=== PATIENT | male | born 1945 | race Two or more races ===

== ENCOUNTER 2017-10-05 15:01 | Inpatient (IN) | payer MEDICARE, OTHER ==
[~2017-10-05] VITALS: Ht 170.2 cm; Wt 93.2 kg
[2017-10-05] VITALS (23 sets, daily range): BP systolic 124–156; BP diastolic 59–87
[~2017-10-05 15:01] MED LIST: AMLO5TAB2 PO; ASPI81CH4 PO; FINA5TAB4 PO; HYDR-2551 PO; LOSA100T27 PO
[2017-10-05] MEDS ORDERED: SODIUM CHLORIDE 0.9% 1,000 ML IV ONE (15:44)
[2017-10-05 15:49] LABS: Hematocrit 32.3 % (41.0-53.0); Hemoglobin 10.9 g/dL (13.5-17.5); Mean Corpuscular Hemoglobin 29.5 pg (28.0-32.0); Mean Corpuscular Hgb Conc. 33.6 g/dL (32.0-36.0); Mean Corpuscular Volume 87.6 fL (80.0-100.0); Platelet Count (auto) 62 10^3/uL (140-450); Red Blood Cells 3.69 10^6/uL (4.5-5.90); Red Cell Distribution Width 13.5 % (11.8-14.3)
[2017-10-05 16:00] LABS: White Blood Cell 1.3 10^3/uL (4.4-10.8)
[2017-10-05 16:01] LABS: Basophils % (manual) 0 (0.0-2.0); Blast Cells 0; Eosinophils % (manual) 0 (0-7); Metamyelocytes % 0; Myelocytes % 0; Promyelocytes % 0; Reactive Lymphocytes 0
[2017-10-05 16:07] LABS: Alanine Aminotransferase 63 U/L (16-61); Albumin 2.7 g/dL (3.4-5.0); Alkaline Phosphatase 34 U/L (45-117); Anion Gap 10 (5-15); Aspartate Aminotransferase 33 U/L (15-37); BUN/Creatinine Ratio 10.7; Bilirubin, Total 0.7 mg/dL (0.2-1.0); Blood Urea Nitrogen 16 mg/dL (7-18); Calcium 8.1 mg/dL (8.5-10.1); Carbon Dioxide 28 mmol/L (21-32); Chloride 92 mmol/L (98-107); GFR African American 59 mL/min; GFR Non-African American 49 mL/min; Glucose 363 mg/dL (74-106); Lactic Acid w/Reflex 2.6 mmol/L (0.4-2.0); Sodium 130 mmol/L (136-145); Total Protein 6.8 g/dL (6.4-8.2)
[2017-10-05] MEDS ORDERED: metroNIDAZOLE 500MG/100ML 100 ML IV ONE (16:30)
[2017-10-05] MEDS ORDERED: PIPERACILLIN-TAZOB 3.375GM 100 ML IV ONE (16:30)
[2017-10-05] MEDS ORDERED: InsuLIN REG 1unit/0.01ml Soln (100units/ml) IV ONE (16:30)
[2017-10-05 16:32] LABS: INR 1.07 (0.9-1.15); Partial Thromboplastin Time 32.5 sec (22.64-33.71); Prothrombin Time 11.7 sec (9.37-12.3)
[2017-10-05] MEDS ORDERED: POTASSIUM CHL 10% (20 MEQ/15ML) 15ml ORAL SOLN PO ONE (16:45)
[2017-10-05 16:57] LABS: Band Neutrophils % (manual) 0; Lymphocytes % (manual) 79 (10.0-50.0); Monocytes % (manual) 6 (0-12)
[2017-10-05] MEDS ORDERED: FILGRASTIM 300 MCG INJ VIAL SC ONE (17:00)
[2017-10-05] MEDS ORDERED: MORPHINE SULFATE 10 MG/ML INJ 1ML SDV IV PRN (17:00)
[2017-10-05] MEDS ORDERED: VANCOMYCIN PER PHARMACY 0 MG IV SCH (17:00)
[2017-10-05] MEDS ORDERED: ACYCLOVIR 5MG/KG Q8HR PER RX 0 ML IV SCH (17:00)
[2017-10-05] MEDS ORDERED: LORazepam 0.5 MG TAB PO PRN (17:00)
[2017-10-05] MEDS ORDERED: VANCOMYCIN 1GM/250ML 250 ML IV ONE (17:00)
[2017-10-05] MEDS ORDERED: ALBUTEROL SULF 2.5 MG/0.5ML(0.5%) NEB SOLN NEB PRN (17:00)
[2017-10-05] MEDS ORDERED: ACETAMINOPHEN 500 MG TAB PO PRN (17:00)
[2017-10-05] MEDS ORDERED: HYDROcodone-ACET 5/325MG TAB PO PRN (17:00)
[2017-10-05] MEDS ORDERED: DEXTROSE (50%) 50ML SYRG IV PRN (17:00)
[2017-10-05] MEDS ORDERED: NITROGLYCERIN 0.4 MG SL TAB SL PRN (17:00)
[2017-10-05] MEDS ORDERED: AZITHROMYCIN 500MG/ 250ML 250 ML IV ONE (17:00)
[2017-10-05] MEDS ORDERED: PROMETHAZINE HCL 25 MG/ML 1ML IV PRN (17:00)
[2017-10-05] MEDS ORDERED: LACTULOSE 20Gm/30ML SOLN PO PRN (17:00)
[2017-10-05] MEDS: ALBUTEROL SULF 2.5 MG/0.5ML(0.5%) NEB SOLN NEB SCH (18:35)
[2017-10-05] MEDS: IPRATROPIUM BROM 0.5 MG/2.5ML INH SOL NEB SCH (18:35)
[2017-10-05] MEDS ORDERED: THROAT LOZENGES(CEPASTAT) MT PRN (18:45)
[2017-10-05] MEDS: VANCOMYCIN 1,250 MG in D5W 5% 250 ML IV SCH (20:00)
[2017-10-05] MEDS: PANTOPRAZOLE 40 MG TAB PO SCH (20:43)
[2017-10-05] MEDS: FLUCONAZOLE 200MG/100ML 100 ML IV SCH (20:43)
[2017-10-05] MEDS: SODIUM CHLORIDE 0.9% 1,000 ML IV SCH (20:43)
[2017-10-05] MEDS: InsuLIN REG 1unit/0.01ml Soln (100units/ml) SC SCH (21:00)
[2017-10-05] MEDS: ACCU-CHEK COMFORT CURVE STRIP VI SCH (21:00)
[2017-10-06] VITALS (63 sets, daily range): BP systolic 119–156; BP diastolic 61–88
[2017-10-06] MEDS: ACCU-CHEK COMFORT CURVE STRIP VI SCH ×6 (00:28→20:04)
[2017-10-06] MEDS: InsuLIN REG 1unit/0.01ml Soln (100units/ml) SC SCH ×6 (00:29→20:04)
[2017-10-06] MEDS: IPRATROPIUM BROM 0.5 MG/2.5ML INH SOL NEB SCH ×4 (00:37→19:14)
[2017-10-06] MEDS: ALBUTEROL SULF 2.5 MG/0.5ML(0.5%) NEB SOLN NEB SCH ×4 (00:37→19:14)
[2017-10-06] MEDS: SODIUM CHLORIDE 0.9% 1,000 ML IV SCH ×3 (00:52→16:52)
[2017-10-06] MEDS: ACYCLOVIR SOD 50MG/ML 500 MG in D5W 5% 100 ML IV SCH ×4 (01:00→18:00)
[2017-10-06] MEDS: FLUCONAZOLE 200MG/100ML 100 ML IV SCH ×3 (02:41→11:17)
[2017-10-06] MEDS: PIPERACILLIN-TAZOB 3.375GM 100 ML IV SCH ×2 (02:44→06:00)
[2017-10-06] MEDS: MORPHINE SULFATE 10 MG/ML INJ 1ML SDV IV PRN ×2 (05:42→22:18)
[2017-10-06 05:53] LABS: Hematocrit 30.3 % (41.0-53.0); Hemoglobin 10.4 g/dL (13.5-17.5); Mean Corpuscular Hemoglobin 29.9 pg (28.0-32.0); Mean Corpuscular Hgb Conc. 34.1 g/dL (32.0-36.0); Mean Corpuscular Volume 87.6 fL (80.0-100.0); Platelet Count (auto) 53 10^3/uL (140-450); Red Blood Cells 3.46 10^6/uL (4.5-5.90); Red Cell Distribution Width 13.9 % (11.8-14.3)
[2017-10-06 06:06] LABS: White Blood Cell 1.4 10^3/uL (4.4-10.8)
[2017-10-06 06:07] LABS: Basophils % (manual) 0 (0.0-2.0); Blast Cells 0; Eosinophils % (manual) 0 (0-7); Promyelocytes % 0; Reactive Lymphocytes 0
[2017-10-06 06:26] LABS: Albumin 2.5 g/dL (3.4-5.0); BUN/Creatinine Ratio 9.6; Bilirubin, Total 0.6 mg/dL (0.2-1.0); Calcium 8.1 mg/dL (8.5-10.1); Total Protein 6.3 g/dL (6.4-8.2)
[2017-10-06 06:27] LABS: Potassium 2.8 mmol/L (3.5-5.1)
[2017-10-06 06:40] LABS: Band Neutrophils % (manual) 5; Lymphocytes % (manual) 77 (10.0-50.0); Metamyelocytes % 3; Monocytes % (manual) 6 (0-12); Myelocytes % 2
[2017-10-06] MEDS ORDERED: POTASSIUM CHL 10% (20 MEQ/15ML) 15ml ORAL SOLN PO ONE ×2 (07:00→15:15)
[2017-10-06] MEDS: AZITHROMYCIN 500MG/ 250ML 250 ML IV SCH (10:06)
[2017-10-06] MEDS: PANTOPRAZOLE 40 MG TAB PO SCH (10:06)
[2017-10-06] MEDS: PIPERACILLIN-TAZOB 3.375GM 50 ML IV SCH ×2 (13:50→19:15)
[2017-10-06] MEDS: VANCOMYCIN 1,250 MG in D5W 5% 250 ML IV SCH (14:16)
[2017-10-06] MEDS ORDERED: POTASSIUM CHL 20MEQ/50ML 50 ML IV ONE (15:15)
[2017-10-06] MEDS ORDERED: FILGRASTIM 480 MCG INJ VIAL SC ONE (16:00)
[2017-10-06] MEDS: guaiFENesin-DEXTROMETHORPHAN 5ML SYR PO PRN (18:38)
[2017-10-07] VITALS (7 sets, daily range): BP systolic 127–150; BP diastolic 69–85
[2017-10-07] MEDS: IPRATROPIUM BROM 0.5 MG/2.5ML INH SOL NEB SCH ×4 (00:12→19:27)
[2017-10-07] MEDS: ALBUTEROL SULF 2.5 MG/0.5ML(0.5%) NEB SOLN NEB SCH ×4 (00:12→19:27)
[2017-10-07] MEDS: ACCU-CHEK COMFORT CURVE STRIP VI SCH ×6 (00:30→21:27)
[2017-10-07] MEDS: InsuLIN REG 1unit/0.01ml Soln (100units/ml) SC SCH ×6 (00:58→21:28)
[2017-10-07] MEDS: TEMAZEPAM 15 MG CAP PO PRN (00:59)
[2017-10-07] MEDS: PIPERACILLIN-TAZOB 3.375GM 50 ML IV SCH ×4 (01:15→18:15)
[2017-10-07] MEDS: ACYCLOVIR SOD 50MG/ML 500 MG in D5W 5% 100 ML IV SCH ×2 (02:00→11:05)
[2017-10-07] MEDS: SODIUM CHLORIDE 0.9% 1,000 ML IV SCH ×2 (05:22→18:14)
[2017-10-07 06:07] LABS: Hematocrit 28.1 % (41.0-53.0); Hemoglobin 9.5 g/dL (13.5-17.5); Mean Corpuscular Hemoglobin 29.6 pg (28.0-32.0); Mean Corpuscular Hgb Conc. 33.9 g/dL (32.0-36.0); Mean Corpuscular Volume 87.4 fL (80.0-100.0); Platelet Count (auto) 69 10^3/uL (140-450); Red Blood Cells 3.22 10^6/uL (4.5-5.90); Red Cell Distribution Width 13.7 % (11.8-14.3); White Blood Cell 2.8 10^3/uL (4.4-10.8)
[2017-10-07 06:19] LABS: BUN/Creatinine Ratio 7.9; Calcium 7.8 mg/dL (8.5-10.1); Potassium 3.1 mmol/L (3.5-5.1)
[2017-10-07 06:26] LABS: Basophils % (manual) 0 (0.0-2.0); Blast Cells 0; Eosinophils % (manual) 0 (0-7); Promyelocytes % 0; Reactive Lymphocytes 0
[2017-10-07] MEDS: VANCOMYCIN 1,250 MG in D5W 5% 250 ML IV SCH (08:30)
[2017-10-07] MEDS: guaiFENesin-DEXTROMETHORPHAN 5ML SYR PO PRN ×3 (09:15→22:12)
[2017-10-07 10:44] LABS: Band Neutrophils % (manual) 6; Lymphocytes % (manual) 63 (10.0-50.0); Metamyelocytes % 1; Monocytes % (manual) 7 (0-12); Myelocytes % 1
[2017-10-07] MEDS: FILGRASTIM 480 MCG INJ VIAL SC SCH (11:05)
[2017-10-07] MEDS: PANTOPRAZOLE 40 MG TAB PO SCH (11:05)
[2017-10-07] MEDS: AZITHROMYCIN 500MG/ 250ML 250 ML IV SCH (11:05)
[2017-10-07] MEDS: FLUCONAZOLE 200MG/100ML 100 ML IV SCH ×2 (12:25→12:34)
[2017-10-07] MEDS ORDERED: POTASSIUM CHL 20 Meq TABLET PO ONE (13:45)
[2017-10-08] VITALS (7 sets, daily range): BP systolic 137–164; BP diastolic 77–83
[2017-10-08] MEDS: ALBUTEROL SULF 2.5 MG/0.5ML(0.5%) NEB SOLN NEB SCH ×4 (00:35→18:59)
[2017-10-08] MEDS: IPRATROPIUM BROM 0.5 MG/2.5ML INH SOL NEB SCH ×4 (00:35→18:59)
[2017-10-08] MEDS: ACCU-CHEK COMFORT CURVE STRIP VI SCH ×6 (00:40→20:00)
[2017-10-08] MEDS: InsuLIN REG 1unit/0.01ml Soln (100units/ml) SC SCH ×6 (00:41→20:00)
[2017-10-08] MEDS: PIPERACILLIN-TAZOB 3.375GM 50 ML IV SCH ×4 (00:41→18:28)
[2017-10-08] MEDS: TEMAZEPAM 15 MG CAP PO PRN (00:42)
[2017-10-08] MEDS: VANCOMYCIN 1,250 MG in D5W 5% 250 ML IV SCH (01:59)
[2017-10-08] MEDS: SODIUM CHLORIDE 0.9% 1,000 ML IV SCH (04:58)
[2017-10-08 05:09] LABS: Hemoglobin 9.5 g/dL (13.5-17.5); Mean Corpuscular Hemoglobin 29.9 pg (28.0-32.0); Mean Corpuscular Hgb Conc. 34.1 g/dL (32.0-36.0); Mean Corpuscular Volume 87.6 fL (80.0-100.0); Platelet Count (auto) 141 10^3/uL (140-450); Red Blood Cells 3.19 10^6/uL (4.5-5.90); Red Cell Distribution Width 13.8 % (11.8-14.3); White Blood Cell 6.5 10^3/uL (4.4-10.8)
[2017-10-08 05:16] LABS: Basophils % (manual) 0 (0.0-2.0); Blast Cells 0; Eosinophils % (manual) 0 (0-7); Metamyelocytes % 0; Promyelocytes % 0; Reactive Lymphocytes 0
[2017-10-08 05:21] LABS: Magnesium 2.2 mg/dL (1.6-2.6)
[2017-10-08 05:28] LABS: Potassium 2.7 mmol/L (3.5-5.1)
[2017-10-08 05:40] LABS: Band Neutrophils % (manual) 17; Lymphocytes % (manual) 37 (10.0-50.0); Monocytes % (manual) 8 (0-12); Myelocytes % 1
[2017-10-08] MEDS ORDERED: POTASSIUM CHL 20 Meq TABLET PO ONE ×3 (06:00→14:30)
[2017-10-08] MEDS: AZITHROMYCIN 500MG/ 250ML 250 ML IV SCH (10:12)
[2017-10-08] MEDS: PANTOPRAZOLE 40 MG TAB PO SCH (10:12)
[2017-10-08] MEDS: FILGRASTIM 480 MCG INJ VIAL SC SCH (10:13)
[2017-10-08] MEDS: FLUCONAZOLE 200MG/100ML 100 ML IV SCH ×2 (10:13→11:00)
[2017-10-08] MEDS ORDERED: LEVO500T21 PO (12:05)
[2017-10-08] MEDS ORDERED: SACC250C PO (12:05)
[2017-10-08] MEDS ORDERED: ALBUAER3 IN (12:06)
[2017-10-08 12:45] LABS: Urine Bacteria NONE SEEN /hpf (None Seen); Urine Blood Negative /uL (Negative); Urine WBC <1 /hpf (0 - 3)
[2017-10-08] MEDS: VANCOMYCIN 1GM/250ML 250 ML IV SCH (14:26)
[2017-10-08] MEDS ORDERED: LOSARTAN POTASSIUM 50 MG TAB PO ONE (16:30)
[2017-10-09] MEDS: ALBUTEROL SULF 2.5 MG/0.5ML(0.5%) NEB SOLN NEB SCH ×4 (00:30→19:12)
[2017-10-09] MEDS: IPRATROPIUM BROM 0.5 MG/2.5ML INH SOL NEB SCH ×4 (00:30→19:12)
[2017-10-09] MEDS: InsuLIN REG 1unit/0.01ml Soln (100units/ml) SC SCH ×6 (00:55→20:07)
[2017-10-09] MEDS: ACCU-CHEK COMFORT CURVE STRIP VI SCH ×6 (00:55→20:07)
[2017-10-09] MEDS: VANCOMYCIN 1GM/250ML 250 ML IV SCH (02:00)
[2017-10-09] MEDS: PIPERACILLIN-TAZOB 3.375GM 50 ML IV SCH ×2 (02:32→06:56)
[2017-10-09 03:30] VITALS: BP 137/70
[2017-10-09 05:09] LABS: Albumin 2.2 g/dL (3.4-5.0); BUN/Creatinine Ratio 5.3; Calcium 7.4 mg/dL (8.5-10.1)
[2017-10-09 05:12] LABS: Bilirubin, Total 0.3 mg/dL (0.2-1.0); Total Protein 5.9 g/dL (6.4-8.2)
[2017-10-09 05:15] LABS: Potassium 2.9 mmol/L (3.5-5.1)
[2017-10-09] MEDS ORDERED: POTASSIUM CHL 20 Meq TABLET PO ONE ×3 (07:45→18:15)
[2017-10-09] MEDS: FILGRASTIM 480 MCG INJ VIAL SC SCH (09:52)
[2017-10-09] MEDS: AZITHROMYCIN 500MG/ 250ML 250 ML IV SCH (09:52)
[2017-10-09] MEDS: FLUCONAZOLE 200MG/100ML 100 ML IV SCH (09:52)
[2017-10-09] MEDS: LOSARTAN POTASSIUM 50 MG TAB PO SCH (09:53)
[2017-10-09] MEDS: PANTOPRAZOLE 40 MG TAB PO SCH (09:53)
[2017-10-09] MEDS ORDERED: POTA20TA53 PO (11:29)
[2017-10-09 12:00] VITALS: BP 140/76
[2017-10-09 16:00] VITALS: BP 133/84
[2017-10-09 19:45] VITALS: BP 141/45
[2017-10-09 23:30] VITALS: BP 144/80
[2017-10-10] MEDS: ALBUTEROL SULF 2.5 MG/0.5ML(0.5%) NEB SOLN NEB SCH ×3 (00:04→11:22)
[2017-10-10] MEDS: IPRATROPIUM BROM 0.5 MG/2.5ML INH SOL NEB SCH ×3 (00:04→11:22)
[2017-10-10] MEDS: InsuLIN REG 1unit/0.01ml Soln (100units/ml) SC SCH ×5 (00:21→16:13)
[2017-10-10] MEDS: ACCU-CHEK COMFORT CURVE STRIP VI SCH ×5 (00:21→16:09)
[2017-10-10 04:00] VITALS: BP 143/68
[2017-10-10 06:51] LABS: Basophils # (auto) 0.1 uL; Basophils % (auto) 0.3 % (0.0-2.0); Eosinophils # (auto) 0 uL; Hematocrit 29.5 % (41.0-53.0); Lymphocytes # (auto) 2.8 uL; Lymphocytes % (auto) 11.6 % (10.0-50.0); Mean Corpuscular Hemoglobin 29.9 pg (28.0-32.0); Mean Corpuscular Hgb Conc. 33.8 g/dL (32.0-36.0); Mean Corpuscular Volume 88.3 fL (80.0-100.0); Monocytes # (auto) 1.5 uL; Neutrophils % (auto) 82.1 % (37.0-80.0); Platelet Count (auto) 152 10^3/uL (140-450); Red Blood Cells 3.34 10^6/uL (4.5-5.90); Red Cell Distribution Width 13.8 % (11.8-14.3); White Blood Cell 24.4 10^3/uL (4.4-10.8)
[2017-10-10 07:30] VITALS: BP 145/82
[2017-10-10] MEDS: PANTOPRAZOLE 40 MG TAB PO SCH (09:35)
[2017-10-10] MEDS: LOSARTAN POTASSIUM 50 MG TAB PO SCH (09:39)
[2017-10-10 12:00] VITALS: BP 151/75
[2017-10-10] MEDS ORDERED: POTASSIUM CHL 20 Meq TABLET PO ONE (13:00)
[2017-10-10] MEDS ORDERED: LEVOFLOXACIN 250 MG TAB PO ONE (13:15)
[2017-10-10] MEDS ORDERED: FLORASTOR (S. BOULARDII) 250 MG CAP PO SCH (13:15)
[2017-10-10] MEDS ORDERED: METR500T PO (13:23)
[2017-10-10 15:52] VITALS: BP 151/75
[2017-10-10 16:37] VITALS: BP 151/75
== END 2017-10-10 17:30 | disposition home or self-care (01) | DRG 871 ==
LOC: ER 15:01 → TELE 15:02 → ICU WEST 17:47 → DOU IN ICU 10-07 11:23
PROVIDERS: ADMIT Internal Medicine; ATTEND Internal Medicine
PROC: 02HV33Z Insertion of Infusion Device into Superior Vena Cava, Percutaneous Approach (ICD-10-PCS; principal; 2016-12-06)
DX: A41.9 Sepsis, unspecified organism (principal); J18.1 Lobar pneumonia, unspecified organism; J96.01 Acute respiratory failure with hypoxia; D61.810 Antineoplastic chemotherapy induced pancytopenia; E44.0 Moderate protein-calorie malnutrition; E11.9 Type 2 diabetes mellitus without complications; E87.1 Hypo-osmolality and hyponatremia; J44.0 Chronic obstructive pulmonary disease with (acute) lower respiratory infection; E87.6 Hypokalemia; Z85.3 Personal history of malignant neoplasm of breast; E78.5 Hyperlipidemia, unspecified; I10 Essential (primary) hypertension; R50.81 Fever presenting with conditions classified elsewhere; T45.1X5A Adverse effect of antineoplastic and immunosuppressive drugs, initial encounter; Z90.12 Acquired absence of left breast and nipple
CPT/HCPCS: 36415; 36600; 71010; 71250; 80048; 80053; 80202; 81001; 82270; 82805; 82962; 83036; 83605; 83735; 84132; 84484; 85007; 85025; 85027; 85379; 85610; 85730; 87040; 87081; 87400; 87493; 93005; 93970; 94640; 94761; 96361; 96365; 96375; J1442; J1450; J1815; J2543; J3490; J7060

== ENCOUNTER 2024-08-05 20:04 | Emergency (ER) | payer MEDICARE, OTHER ==
[~2024-08-05] VITALS: Ht 170.2 cm; Wt 89.1 kg
[~2024-08-05 20:04] MED LIST changes: +ALBUAER3 IN; +AMLO1TAB22 PO; -AMLO5TAB2 PO; -ASPI81CH4 PO; +ASPI81CH74 PO; +LEVO500T31 PO; +LOSA-535 PO; -LOSA100T27 PO; +METR500T PO; +POTA-220 PO; +SACC250C PO
[2024-08-05 21:26] VITALS: PULSE 87; RESP 16; TEMP 99; O2SAT 96
[2024-08-05 22:00] VITALS: BP 164/84
[2024-08-05] MEDS ORDERED: MOXI0.5S3 OP (22:03)
[2024-08-05] MEDS ORDERED: AMLO1TAB23 PO (22:08)
== END 2024-08-05 22:20 | disposition home or self-care (01) ==
LOC: ER 20:04
DX: I10 Essential (primary) hypertension (principal); H10.32 Unspecified acute conjunctivitis, left eye; E78.5 Hyperlipidemia, unspecified; Z79.899 Other long term (current) drug therapy

== ENCOUNTER 2025-08-19 11:01 | Inpatient (IN) | payer MEDICARE, OTHER ==
[~2025-08-19] VITALS: Ht 170.2 cm; Wt 88.5 kg
[~2025-08-19 11:01] MED LIST changes: +AMLO1TAB23 PO; +MOXI0.5S3 OP
--- NOTE | 2025-08-19 11:50 | ED.PDOC ---
History of Present Illness HPI Comments This is a 79 year old male presenting to the ED with chief complaint of generalized weakness. Patient reports that he has been experiencing generalized weakness with associated imbalance when walking for the past 5 months, worsening over time. Patient relays that he had fell 2 times yesterday, hitting his head both times. Patient denies any LOC, syncope, headache, dizziness, N/V, abdominal pain, chest pain, or SOB. Chief Complaint: General Weakness Time Seen by MD: 11:48 Primary Care Provider: ALEX Reviewed Notes: Nurses Notes, Medications, Allergies Allergies: Coded Allergies: NO KNOWN ALLERGIES (Unverified , 07/10/17) Home Meds Active Scripts Amlodipine Besylate (Amlodipine Besylate) 10 Mg Tab, 10 MG PO DAILY for 30 Days, #30 TAB Take 1 tab by mouth once daily. STOP YOUR AMLODIPINE 5 MG TABS. Prov:PAT MO [facility] 08/05/24 Moxifloxacin Hydrochloride (Moxifloxacin HCl) 0.5 % Hanna, 0.5 % OP ONCE for 7 Da ys, #2 ML Instill 1 drop 3 times a day until left eye x7 days Prov:PAT MO [facility] 08/05/24 Metronidazole (Flagyl) 500 Mg Tab, 500 MG PO Q6HR for 10 Days, #40 TAB Prov:SALBADOR ALLISON MD 10/10/17 Potassium Chloride (Klor-Con M20) 20 Meq Tab, 20 MEQ PO DAILY, #30 TAB Prov:SALBADOR ALLISON MD 10/09/17 Albuterol Sulfate (VENTOLIN MDI) 90 Mcg Ih, 90 MCG IN Q6HP PRN for 30 Days Prov:SALBADOR ALLISON MD 10/08/17 Yeast (S. Boulardii)(S. Cerevi (Florastor) 250 Mg Cap, 250 MG PO DAILY, #10 CAP Prov:SALBADOR ALLISON MD 10/08/17 Levofloxacin (Levaquin) 500 Mg Tab, 500 MG PO DAILY, #7 TAB Prov:SALBADOR ALLISON MD 10/08/17 Reported Medications Aspirin (Aspirin 81 Low Dose) 81 Mg Chw, 81 MG PO DAILY, CHW 07/11/17 Amlodipine Besylate (Amlodipine Besylate) 5 Mg Tab, 5 MG PO DAILY for 30 Days, MG iNCREASE TO 10MG DAILY 07/11/17 Finasteride (Finasteride) 5 Mg Tab, 5 MG PO DAILY for 30 Days, MG 07/11/17 Losartan Potassium (Losartan Potassium) 100 Mg Tab, 100 MG PO DAILY for 30 Days, MG 07/11/17 Hydrochlorothiazide (Hydrochlorothiazide) 50 Mg Tab, 50 MG PO DAILY for 30 Days, MG 07/11/17 Information Source: Patient, Spouse Mode of Arrival: Ambulatory Severity: Moderate Timing: Months Duration: Since onset Prehospital treatment: None Past Medical History PAST MEDICAL HISTORY: Cancer, DM, High Lipids, HTN Surgical History: Appendectomy, Tonsillectomy Surgical History (Other): Left knee surgery, eye surgery, breast cancer surgery Family History Family History: Reviewed,noncontributory to illness, Unknown Social History Smoker: Non-Smoker Alcohol: Occasionally Drugs: Denies Drug Use Lives In: Home Constitutional: reports: weakness; denies: chills, diaphoresis, fatigue, fever, malaise, sweats, others EENTM: denies: blurred vision, double vision, ear bleeding, ear discharge, ear drainage, ear pain, ear ringing, eye pain, eye redness, hearing loss, mouth pain, mouth swelling, nasal discharge, nose bleeding, nose congestion, nose pain, photophobia, tearing, throat pain, throat swelling, voice changes, others Respiratory: denies: cough, hemoptysis, orthopnea, SOB at rest, shortness of breath, SOB with excertion, stridor, wheezing, others Cardiovascular: denies: chest pain, dizzy spells, diaphoresis, Dyspnea on exertion, edema, irregular heart beat, left arm pain, lightheadedness, palpitations, PND, syncope, others Gastrointestinal: denies: abdomen distended, abdominal pain, blood streaked bowels, constipated, diarrhea, dysphagia, difficulty swallowing, hematemesis, melena, nausea, poor appetite, poor fluid intake, rectal bleeding, rectal pain, vomiting, others Genitourinary: denies: burning, dysuria, flank pain, frequency, hematuria, incontinence, penile discharge, penile sore, pain, testicle pain, testicle swelling, urgency, others Neurological: denies: dizziness, fainting, headache, left sided numbness, left sided weakness, numbness, paresthesia, pre-existing deficit, right sided numbness, right sided weakness, seizure, speech problems, tingling, tremors, weakness, others Musculoskeletal: denies: back pain, gout, joint pain, joint swelling, muscle p ain, muscle stiffness, neck pain, others Integumetry: denies: bruises, change in color, change in hair/nails, dryness, laceration, lesions, lumps, rash, wounds, others Allergic/Immunocompromised: denies: Difficulty Healing, Frequent Infections, Hives, Itching, others Hematologic/Lymphatic: denies: anemia, blood clots, easy bleeding, easy bruising, swollen glands, others Endocrine: denies: excessive hunger, excessive sweating, excessive thirst, excessive urination, flushing, intolerance to cold, intolerance to heat, unexplained weight gain, unexplained weight loss, others Psychiatric: denies: anxiety, bipolar disorder, depression, hopeless, panic disorder, schizophrenia, sleepless, suicidal, others All Other Systems: Reviewed and Negative Physical Exam General Appearance: Moderate Distress HEENT: Normal ENT Inspection, Pharynx Normal, TMs Normal Neck: Full Range of Motion, Non-Tender, Normal, Normal Inspection Respiratory: Chest Non-Tender, Lungs Clear, No Accessory Muscle Use, No Respiratory Distress, Normal Breath Sounds Cardiovascular: No Edema, No JVD, No Murmur, No Gallop, Normal Peripheral Pulses, Regular Rate/Rhythm Breast Exam: Deferred Gastrointestinal: No Organomegaly, Non Tender, No Pulsatile Mass, Normal Bowel Sounds, Soft Genitalia: Deferred Pelvic: Deferred Rectal: Deferred Extremities: No calf tenderness, Normal capillary refill, No pedal edema Musculoskeletal : Apperance: Normal Neurologic: Alert, hone operator II-XII nml as Tested, Motor Weakness, Normal Affect, Normal Mood, No Sensory Deficits Cerebellar Function: Normal Reflexes: Normal Skin: Dry, Normal Color, Warm Lymphatic: No Adenopathy Was a procedure done? Was a procedure done?: No Differential Dx Considerations may include: CVA, autonomic dysfunction, generalized weakness X-Ray, Labs, Meds, VS Vital Signs Date Time Temp Pulse Resp B/P (MAP) Pulse Ox O2 Delivery O2 Flow Rate FiO2 08/19/25 11:12 97.6 83 18 137/71 94 97.6 Lab Test 08/19/25 11:48 Range/Units White Blood Count 8.1 4.4-10.8 10^3/uL Red Blood Count 4.76 4.5-5.90 10^6/uL Hemoglobin 14.1 13.5-17.5 g/dL Hematocrit 42.5 41.0-53.0 % Mean Corpuscular Volume 89.3 80.0-100.0 fL Mean Corpuscular Hemoglobin 29.6 28.0-32.0 pg Mean Corpuscular Hemoglobin Concent 33.1 32.0-36.0 g/dL Red Cell Distribution Width 13.7 11.8-14.3 % Platelet Count 124 L 140-450 10^3/uL Mean Platelet Volume 8.2 6.9-10.8 fL Neutrophils (%) (Auto) 62.1 37.0-80.0 % Lymphocytes (%) (Auto) 25.2 10.0-50.0 % Monocytes (%) (Auto) 8.0 0.0-12.0 % Eosinophils (%) (Auto) 4.2 0.0-7.0 % Basophils (%) (Auto) 0.5 0.0-2.0 % Neutrophils # (Auto) 5.1 1.6-8.6 10 ^3/uL Lymphocytes # (Auto) 2.1 0.4-5.4 10 ^3/uL Monocytes # (Auto) 0.7 0-1.3 10 ^3/uL Eosinophils # (Auto) 0.3 0-0.8 10 ^3/uL Basophils # (Auto) 0 0-0.2 10 ^3/uL Nucleated Red Blood Cells 0.3 % Sodium Level 138 136-145 mmol/L Potassium Level 4.8 3.5-5.1 mmol/L Chloride Level 102 98-107 mmol/L Carbon Dioxide Level 28 20-31 mmol/L Anion Gap 8 5-15 Blood Urea Nitrogen 21 9-23 mg/dL Creatinine 1.25 0.700-1.30 mg/dL Glomerular Filtration Rate Calc 59 >90 mL/min BUN/Creatinine Ratio 16.8 10.0-20.0 Serum Glucose 150 H 74-106 mg/dL Calcium Level 9.3 8.7-10.4 mg/dL Current Medications Medications (Trade) Dose Ordered Sig/Valeriano Route Start Time Stop Time Status Last Admin Sodium Chloride 500 ml @ 500 mls/hr Q1H ONCE IV 08/19/25 11:45 08/19/25 12:44 DC 08/19/25 13:18 CT Brain indicates: 1. Global brain atrophy and Chronic ischemic changes without evidence of acute intracranial process. 2. Mild paranasal sinus disease. The paranasal sinuses are not fully imaged here. IV Hep-Lock was established The patient was given normal saline at a 500 cc bolus The patient's CBC is within normal limits The chemistry panel shows a creatinine of 1.25 but otherwise within normal limits At this time, the patient will be admitted to the hospitalist. Images Reviewed?: Images reviewed and evaluated by me Time of 1ST Reevaluation: 14:24 Reevaluation 1ST: Unchanged Patient Education/Counseling: Diagnosis, Treatment, Prognosis Family Education/Counseling: Diagnosis, Treatment, Prognosis SEPSIS Sepsis Screen Date sepsis recognized/suspect: Aug 19, 2025 Time Sepsis recognized/suspect: 1113 Recent Procedure: No On Antibiotic Therapy: No Respiratory Rate >20: No Heart Rate >90: No Temp<36 C (96.8 F) or >38.3 C: No SBP <90 or MAP <65 mmHG: No New Acute Mental Status Change: No Is the patient on CPAP, BIPAP,: No Physician Orders Urinalysis (08/19/25 11:38) Heplock Iv (08/19/25 11:38) Green Feed Attendant (08/19/25 11:38) Blood Pressure (08/19/25 11:38) Pulse Oximetry (08/19/25 11:38) Electrocardigram (08/19/25 11:38) Head Without Contrast (08/19/25 11:38) Vital Signs Date Time Temp Pulse Resp B/P (MAP) Pulse Ox O2 Delivery O2 Flow Rate FiO2 08/19/25 11:12 97.6 83 18 137/71 94 97.6 Laboratory Tests Test 08/19/25 11:48 White Blood Count 8.1 10^3/uL (4.4-10.8) Medications Medications Dose Ordered Sig/Valeriano Route Start Time Stop Time Status Last Admin Dose Admin Sodium Chloride 500 ml @ 500 mls/hr Q1H ONCE IV 08/19/25 11:45 08/19/25 12:44 DC 08/19/25 13:18 Departure 1 Departure Time of Disposition: 14:41 Impression: Primary Impression: Generalized weakness Additional Impression: Autonomic dysfunction Disposition: ADMITTED INPATIENT Admit to: Tele Condition: Fair Discharged With: Self Critical Care Note Critical Care Time?: No Stability Stability form required: Yes Unstable for transfer: Telemetry monitoring (Telemetry monitoring required), ED Physician Assesment (Clinical assesment) Heart Score Heart Score: Heart Score Response (Comments) Value History N/A 0 EKG N/A 0 Age N/A 0 Risk Factors N/A 0 Troponin N/A 0 Total 0 I personally scribed for EMMANUEL MCDONOUGH MD ([email or web address]) on 08/19/25 at 11:50. Electronically submitted by Drew Cisse ([email or web address]). I personally scribed for EMMANUEL MCDONOUGH MD ([email or web address]) on 08/19/25 at 13:05. Electronically submitted by Drew Cisse ([email or web address]). EMMANUEL MCDONOUGH MD Aug 19, 2025 11:50
[2025-08-19 12:08] LABS: Hematocrit 42.5 % (41.0-53.0); Hemoglobin 14.1 g/dL (13.5-17.5); Mean Corpuscular Hemoglobin 29.6 pg (28.0-32.0); Mean Corpuscular Volume 89.3 fL (80.0-100.0); Nucleated Red Blood Cells % 0.3 %
[2025-08-19 12:11] LABS: Chloride 102 mmol/L (98-107); Potassium 4.8 mmol/L (3.5-5.1); Sodium 138 mmol/L (136-145)
[2025-08-19 12:12] LABS: Anion Gap 8 (5-15); Calcium 9.3 mg/dL (8.7-10.4); Carbon Dioxide 28 mmol/L (20-31)
[2025-08-19 12:17] LABS: BUN/Creatinine Ratio 16.8 (10.0-20.0); Blood Urea Nitrogen 21 mg/dL (9-23)
[2025-08-19 12:18] LABS: Glucose 150 mg/dL (74-106)
--- NOTE | 2025-08-19 12:24 | DVH ---
EXAM: CT HEAD WITHOUT CONTRAST HISTORY: weakness, multiple recent falls COMPARISON: None TECHNIQUE: Noncontrast axial CT images of the head were performed. Sagittal and coronal reformatted i mages were obtained. This CT exam was performed using 1 or more of the following dose reduction techn iques: Automated exposure control, adjustment of the mA and/or kv according to patient size, or the u se of iterative reconstruction techniques. Radiation Dose: CTDI volume is 52.15 mGy. Dose-length product is 863.9 mGy*cm FINDINGS: There is global brain atrophy with prominence of the ventricular system and sulci. There is moderate to severe decreased attenuation in the periventricular and bicerebral white matter. No intracranial h emorrhage, mass, midline shift, hydrocephalus, or evidence of acute large vessel infarct. There are t hick atherosclerotic calcifications of the cavernous carotid arteries and terminal vertebral arteries . There is mild mucosal thickening of the bilateral ethmoid and right sphenoid sinuses. The bilateral mastoid air cells and middle ear spaces are clear. No cranial fracture or scalp edema. IMPRESSION: 1. Global brain atrophy and Chronic ischemic changes without evidence of acute intracranial process. 2. Mild paranasal sinus disease. The paranasal sinuses are not fully imaged here.
[2025-08-19] MEDS: SODIUM CHLORIDE 0.9% 500 ML IV ONE (13:18)
[2025-08-19 20:21] LABS: Urine Protein, UAD Negative (Negative)
--- NOTE | 2025-08-19 23:52 | DVHHPRES ---
History of Present Illness Resident Creating Document: ADDIE KIRBY RESIDENT History of Present Illness History of Present Illness (HPI): Facundo Ackerman is a 79-year-old male with a past medical history significant for hypertension, diabetes mellitus, dyslipidemia, depression, breast cancer status post mastectomy, and osteo arthritis. He presented with complaints of generalized weakness, dizziness, and a mechanical fall. The patient reports that he has been using a walker at home for the past four days due to progressive leg weakness, stating that his legs felt as though they had no strength prior to the fall. Following the incident, he now complains of bilateral knee pain. He denies experiencing chest pain, palpitations, fever, or shortness of breath. Past Medical History (PMH): hypertension, diabetes mellitus,dyslipidemia, depression, breast cancer status post mastectomy, and osteoarthritis. Past Surgical History (PSH): Knee replacement surgery, lumbar spine surgery Family history (FH): History of coronary artery disease in mother, breast cancer in sister EtOH: Occasional alcohol use Smoking /Vapin pack year smoking history Recreational Drugs: Denies recreational drug use Residence: Lives with family Home Medications: Metoprolol, clonidine, spironolactone, potassium, tamsulosin, atorvastatin Allergies: No known allergies PCP: Dr. Garland Specialist relevant to admission: Nonrelevant Review of Systems Review of Systems General: patient denies fever, fatigue, weaknes, sweating, any recent changes in appetite and weight HEENT: No headaches, visiual changes, hearing loss, tinnitus, nasal congestion and discharge, and sore throat. Cardiovascular: Denies chest pain, palpitations, dyspnea on exertion, orthopnea, or claudication. Respiratory: No cough, and wheezing. Gastrointestinal: Denies nausea, vomiting, dysphagia, odynophagia, heartburn, abdominal pain, flatulence, bloating, diarrhea, constipation, change in stool, or blood in stool. Genitourinary: No dysuria, hematuria, discharge, frequency, urgency, nocturia, incontinence, and urinary retention. Endocrine: No heat or cold intolerance, polydipsia, polyuria, and polyphagia. Neurological: No dizziness, extremity weakness and numbness, tremors, gait disturbance, seizures, and memory impairment. Psychiatric: Denies depression, anxiety,or insomnia. Musculoskeletal: Denies neck pain, stiffness and swelling, back pain, muscle weakness, joint pain, stiffness, swelling, or limited range of motion. Skin: No rashes, itching, skin lesion, changes in hair, nail, skin texture and breast. Hematologic/Lymphatic: Denies easy bruising, bleeding tendencies, or lymph node enlargement. Allergies: Coded Allergies: NO KNOWN ALLERGIES (Unverified , 07/10/17) Exam Vital Signs Vital Signs Date Time Temp Pulse Resp B/P (MAP) Pulse Ox O2 Delivery O2 Flow Rate FiO2 08/19/25 21:43 98.7 76 19 189/83 (118) 94 98.7 08/19/25 15:31 Room Air Exam General Appearance: Alert, Oriented X3, Cooperative, No acute distress HEENT: Atraumatic, PERRLA, EOMI, Mucous membrane moist/pink Respiratory: Clear to auscultation, Normal air movement Cardiovascular: Regular rate, Normal S1, Normal S2, No murmurs, no chest wall tenderness Abdominal: Normal bowel sounds, Soft, No tenderness, No hepatospenomegaly, No masses Extremities: No clubbing, No cyanosis, No edema, Normal pulses, No tenderness/swelling Skin: No rashes, No breakdown, No significant lesion Neuro: Normal gait, Normal speech, Strength at 5/5 X4 ext, Normal tone, Sensation intact, Cranial nerves 3-12 NL, Reflexes 2+ Psych/Mental Status: Mental status NL, Mood NL Labs/Xrays Labs Test 08/19/25 11:48 08/19/25 00:00 Range/Units White Blood Count 8.1 4.4-10.8 10^3/uL Red Blood Count 4.76 4.5-5.90 10^6/uL Hemoglobin 14.1 13.5-17.5 g/dL Hematocrit 42.5 41.0-53.0 % Mean Corpuscular Volume 89.3 80.0-100.0 fL Mean Corpuscular Hemoglobin 29.6 28.0-32.0 pg Mean Corpuscular Hemoglobin Concent 33.1 32.0-36.0 g/dL Red Cell Distribution Width 13.7 11.8-14.3 % Platelet Count 124 L 140-450 10^3/uL Mean Platelet Volume 8.2 6.9-10.8 fL Neutrophils (%) (Auto) 62.1 37.0-80.0 % Lymphocytes (%) (Auto) 25.2 10.0-50.0 % Monocytes (%) (Auto) 8.0 0.0-12.0 % Eosinophils (%) (Auto) 4.2 0.0-7.0 % Basophils (%) (Auto) 0.5 0.0-2.0 % Neutrophils # (Auto) 5.1 1.6-8.6 10 ^3/uL Lymphocytes # (Auto) 2.1 0.4-5.4 10 ^3/uL Monocytes # (Auto) 0.7 0-1.3 10 ^3/uL Eosinophils # (Auto) 0.3 0-0.8 10 ^3/uL Basophils # (Auto) 0 0-0.2 10 ^3/uL Nucleated Red Blood Cells 0.3 % Sodium Level 138 136-145 mmol/L Potassium Level 4.8 3.5-5.1 mmol/L Chloride Level 102 98-107 mmol/L Carbon Dioxide Level 28 20-31 mmol/L Anion Gap 8 5-15 Blood Urea Nitrogen 21 9-23 mg/dL Creatinine 1.25 0.700-1.30 mg/dL Glomerular Filtration Rate Calc 59 >90 mL/min BUN/Creatinine Ratio 16.8 10.0-20.0 Serum Glucose 150 H 74-106 mg/dL Calcium Level 9.3 8.7-10.4 mg/dL Urine Color Colorless Yellow Urine Clarity Clear Clear Urine pH 5.5 5.0-9.0 Urine Specific [place] 1.004 1.001-1.035 Urine Protein Negative Negative Urine Ketones Negative Negative Urine Blood Negative Negative /uL Urine Nitrite Negative Negative Urine Bilirubin Negative Negative Urine Urobilinogen Normal Negative mg/dL Urine Leukocyte Esterase Negative Negative /uL Urine RBC <1 0 - 3 /hpf Urine Microscopic WBC < 1 0-3 /HPF Urine Squamous Epithelial Cells None seen <5 /hpf Urine Bacteria None seen None Seen /hpf Urine Glucose Normal Normal mg/dL SEPSIS Sepsis Screen Date sepsis recognized/suspect: Aug 19, 2025 Time Sepsis recognized/suspect: 1114 Recent Procedure: No On Antibiotic Therapy: No Respiratory Rate >20: No Heart Rate >90: No Temp<36 C (96.8 F) or >38.3 C: No SBP <90 or MAP <65 mmHG: No New Acute Mental Status Change: No Is the patient on CPAP, BIPAP,: No Physician Orders Admit (08/19/25 22:51) Oxygen By Nasal Cannula (08/19/25 22:51) Stat Ekg For Chest Pain (08/19/25 22:51) Notify Md Of Changes From Base (08/19/25 22:51) Cutter And Paster Press Clippings For 24 Hours (08/19/25 22:51) Emergency Dysrhythmia Protocol (08/19/25 22:51) Rhythm Strips Once Every Shift (08/19/25 22:51) Vital Signs Date Time Temp Pulse Resp B/P (MAP) Pulse Ox O2 Delivery O2 Flow Rate FiO2 08/19/25 21:43 98.7 76 19 189/83 (118) 94 98.7 08/19/25 19:51 98.5 72 18 187/93 (124) 95 98.5 Assessment/Plan Assessment/Plan Assessment and plan # Hypertensive crisis - IV hydralazine - IV labetalol - Nifedipine - Monitor blood pressure levels, target in-hospital blood pressure level of 160/90, slow reduction # Mechanical fall - Head CT normal # Gait instability - Vitamin B12 - If persistent, consider consulting neuro # Type 2 diabetes mellitus - Sliding scale insulin - Target in hospital BG of 140-180 # Osteoarthritis - Outpatient follow-up with PCP on discharge #History of breast cancer status post mastectomy - Outpatient follow-up with PCP on discharge PUD prophylaxis: protonix 40mg DVT prophylaxis: Levonox 40mg Barriers to discharge: Medical diagnosis and management in progress. Patient lives with family. Independent for ADL. PCP: Dr. Chacon Specialist Relevant To Admission: Nonrelevant Case discussed with Dr. Ye. Code Status: Full Code. Complex patient care discussion needed. Spend total 33 minutes for bedside assessment, case discussion and management. Plan discussed with: Patient Date of Service: Aug 19, 2025 Billing Provider: ADDIE KIRBY Common Visit Codes: [id number] INP/OBS CARE (HIGH) Secondary Visit Codes: [id number] CARE PLAN 30 MINUTES ADDIE KIRBY Aug 19, 2025 23:52
[2025-08-20] VITALS (13 sets, daily range): BP systolic 129–172; BP diastolic 74–98; PULSE 78–110; RESP 17–19; TEMP 97.9–98.7; O2SAT 93–96
[2025-08-20] MEDS: ENALAPRILAT 1.25 MG/ML-1ML VIAL IV ONE (00:31)
[2025-08-20] MEDS: hydrALAZINE HCL 20 MG/ML VL IV ONE (03:48)
[2025-08-20] MEDS ORDERED: DEXTROSE (50%) 50ML SYRG IV PRN (04:00)
[2025-08-20 04:11] LABS: Hematocrit 41.5 % (41.0-53.0); Hemoglobin 14.0 g/dL (13.5-17.5); Mean Corpuscular Hemoglobin 30.0 pg (28.0-32.0); Mean Corpuscular Volume 89.1 fL (80.0-100.0); Nucleated Red Blood Cells % 0.0 %
--- NOTE | 2025-08-20 04:21 | DVH ---
CLINICAL INDICATION: mechanical fall, b/l knee pain TECHNIQUE: XY L KNEE 2V XRAY Comparison: XY R KNEE 2V XRAY on DOS: 08/20/25 FINDINGS/IMPRESSION: : Mild diffuse generalized osseous demineralization. Hardware status post total knee arthroplasty without evidence of complication. There is no evidence of acute fracture or dislocation. Soft tissues are unremarkable. Atherosclerotic vascular calcifications.
--- NOTE | 2025-08-20 04:21 | DVH ---
CLINICAL INDICATION: mechanical fall, b/l knee pain TECHNIQUE: XY R KNEE 2V XRAY Comparison: XY L KNEE 2V XRAY on DOS: 08/20/25 FINDINGS/IMPRESSION: : There is no evidence of acute fracture or dislocation. Moderate tricompartmental osteoarthritic degenerative change including moderate joint space narrowing and associated osteophytosis.. Soft tissues are unremarkable. Atherosclerotic vascular calcifications.
[2025-08-20 04:27] LABS: INR 0.97 (0.9-1.15); Partial Thromboplastin Time 28.0 SEC (24.5-34.5); Prothrombin Time 10.3 sec (9.3-11.8)
[2025-08-20 04:58] LABS: Alanine Aminotransferase 37 U/L (7-40); Albumin 4.2 g/dL (3.2-4.8); Alkaline Phosphatase 80 U/L (46-116); Anion Gap 12 (5-15); BUN/Creatinine Ratio 12.9 (10.0-20.0); Bilirubin, Total 0.4 mg/dL (0.2-1.0); Blood Urea Nitrogen 15 mg/dL (9-23); Calcium 9.4 mg/dL (8.7-10.4); Carbon Dioxide 26 mmol/L (20-31); Chloride 103 mmol/L (98-107); Potassium 4.3 mmol/L (3.5-5.1); Sodium 141 mmol/L (136-145); Total Protein 7.2 g/dL (5.7-8.2)
[2025-08-20 05:00] LABS: Glucose 116 mg/dL (74-106)
[2025-08-20] MEDS: LABETALOL HCL 20 MG/4 ML VL IV ONE (05:02)
[2025-08-20 05:12] LABS: Benzodiazephine Screen, Urine Neg (NEGATIVE)
[2025-08-20 05:14] LABS: Cholesterol 123 mg/dL (< 200)
[2025-08-20 05:19] LABS: Amphetamine Screen, Urine Neg (NEGATIVE); Cannabinoid Screen, Urine Neg (NEGATIVE); Cocaine Screen, Urine Neg (NEGATIVE); Opiate Scree,Urine Neg (NEGATIVE); Phencyclidine Screen, Urine Neg (NEGATIVE)
[2025-08-20 05:19] LABS: HDL Cholesterol 33 mg/dL (40-59); Triglycerides 186 mg/dL (< 150)
[2025-08-20 05:23] LABS: Barbiturate Scree,Urine Neg (NEGATIVE)
[2025-08-20] MEDS: ACCU-CHEK COMFORT CURVE STRIP VI SCH (06:00)
[2025-08-20] MEDS: InsuLIN REG 1unit/0.01ml Soln (100units/ml) SC SCH (06:00)
--- NOTE | 2025-08-20 06:45 | DVH ---
CHEST RADIOGRAPH Indication: HTN Technique: Single frontal view of the chest was obtained COMPARISON: None FINDINGS: Lines and Tubes: None Lungs: Clear Pleura: No effusion. No pneumothorax. Cardiomediastinal contours: Unremarkable Bones: Unremarkable IMPRESSION: 1. No acute disease.
[2025-08-20 06:55] LABS: COVID19 ANTIGEN SOFIA FIA NEGATIVE (NEGATIVE)
--- NOTE | 2025-08-20 08:37 | DVH ---
INDICATION: Hypertension TECHNIQUE: Multiple real-time sonographic images of the kidneys and bladder were obtained. Duplex Doppler evaluation including color Doppler and spectral/pulsed waveform analysis of the bilate ral renal arteries was performed. COMPARISON: None FINDINGS: The right kidney measures 9.1 cm in length. The right renal echogenicity, contour and cortical thickn ess are within normal limits. No hydronephrosis or large masses/calculi are seen. The left kidney measures 10.0 cm in length. The left renal echogenicity, contour, and cortical thickn ess are within normal limits. No hydronephrosis or large masses/calculi are seen. Left renal cyst eric sures 1.7 cm. Aorta peak systolic velocity, 65 cm/s Right renal artery peak systolic velocity, 90 cm/s (< 180 cm/s = normal). Left renal artery peak systolic velocity 47 cm/s (< 180 cm/s = normal). Right RAR : 1.4 (< 3.5, normal) Left RAR 0.7 (< 3.5, normal) Right RI: 0.7 (< 0.75, normal) Left RI: 0.7 (< 0.75, normal) IMPRESSION: No findings to suggest renal artery stenosis. *Misha Villagomez Techniques in Noninvasive Vascular Diagnosis 2001
--- NOTE | 2025-08-20 08:41 | DVH ---
CLINICAL HISTORY: PRESYNCOPE TECHNIQUE: Lomas-scale, Color and Duplex Doppler imaging of the bilateral carotid systems was performe d. COMPARISON: None Findings: Right Carotid system: There is plaque present in the right carotid system. Left Carotid system: There is plaque present in the left carotid system. The following flow velocities were obtained (cm/sec). Right Carotid System: ICA PSV: 116 cm/sec ICA PDV: 20 cm/sec ICA/CCA Ratio: 1.7 Left Carotid System: ICA PSV: 100 cm/sec ICA PDV: 21 cm/sec ICA/CCA Ratio: 1.1 The right and left common carotid and external carotid arteries are patent. There is antegrade flow i n both vertebral arteries and external carotid arteries. IMPRESSION: LESS THAN 50% RIGHT ICA NARROWING. LESS THAN 50% LEFT ICA NARROWING. Estimation of carotid stenosis is based on velocity parameters that correlate the residual internal c arotid diameter with that of the more distal vessel in accordance with the [place] Symptomatic Carotid Endarterectomy Trial (NASCET).
[2025-08-20] MEDS: LOSARTAN POTASSIUM 50 MG TAB PO SCH (10:07)
[2025-08-20] MEDS: METOPROLOL TARTRATE 25 MG TAB PO SCH (10:09)
--- NOTE | 2025-08-20 12:51 | DVHPN2 ---
Reviewed: Care Plan, H&P, Labs, Medications, Previous Orders, Radiology Changes from previous H/P or p: No Changes Objective Vitals Vital Signs Date Time Temp Pulse Resp B/P (MAP) Pulse Ox O2 Delivery O2 Flow Rate FiO2 08/20/25 10:09 103 144/79 08/20/25 09:04 98.7 18 96 21 98.7 08/20/25 08:00 Room Air* 0 Intake/Output Intake and Output 08/20/25 07:00 Intake Total 500 ml Balance 500 ml Intake IV Total 500 ml Medications Current Medications Medications Dose Ordered Sig/Valeriano Route Start Time Stop Time Status Last Admin Dose Admin Diagnostic Test (Pha) 1 strip Q6HR 08/20/25 06:00 08/20/25 11:59 1 STRIP Insulin Human Regular Q6HR SC 08/20/25 06:00 08/20/25 12:00 3 UNITS Dextrose 50 ml UD PRN IV 08/20/25 04:00 Albuterol 2.5 mg Q4HPRN PRN NEB 08/20/25 04:00 Ipratropium [place] 0.5 mg Q4HPRN PRN NEB 08/20/25 04:00 Aspirin 81 mg DAILY PO 08/20/25 10:00 08/20/25 10:08 81 MG Losartan Potassium 100 mg DAILY PO 08/20/25 10:00 08/20/25 10:07 100 MG Metoprolol Tartrate 25 mg BID PO 08/20/25 10:00 08/20/25 10:09 25 MG Labetalol HCl 5 mg Q2HPRN PRN IV 08/20/25 05:00 Laboratory Results Laboratory Tests 08/20/25 03:42 Chemistry Test 08/20/25 03:42 Albumin 4.2 g/dL (3.2-4.8) Calcium Level 9.4 mg/dL (8.7-10.4) Total Protein 7.2 g/dL (5.7-8.2) Coagulation Test 08/20/25 03:42 Prothrombin Time 10.3 sec (9.3-11.8) Prothrombin Time INR 0.97 (0.9-1.15) Activated Partial Thromboplast Time 28.0 SEC (24.5-34.5) Lipid panel Test 08/20/25 03:42 Cholesterol Level 123 mg/dL (< 200) HDL Cholesterol 33 mg/dL (40-59) L Triglycerides Level 186 mg/dL (< 150) H Cardiac Markers Test 08/20/25 03:42 B-Type Natriuretic Peptide 75.61 pg/mL (0-100) LFT Test 08/20/25 03:42 Alanine Aminotransferase (ALT) 37 U/L (7-40) Alkaline Phosphatase 80 U/L (46-116) Aspartate Amino Transferase (AST) 45 U/L (13-40) H Total Bilirubin 0.4 mg/dL (0.2-1.0) HgA1c, TSH Test 08/20/25 03:42 Hemoglobin A1c 7.2 % A1C (<5.7) H Thyroid Stimulating Hormone (TSH) 1.50 uIU/mL (0.55-4.78) Urinalysis Test 08/19/25 00:00 Urine Color Colorless (Yellow) Urine Clarity Clear (Clear) Urine pH 5.5 (5.0-9.0) Urine Specific [place] 1.004 (1.001-1.035) Urine Protein Negative (Negative) Urine Ketones Negative (Negative) Urine Blood Negative /uL (Negative) Urine Nitrite Negative (Negative) Urine Bilirubin Negative (Negative) Urine Urobilinogen Normal mg/dL (Negative) Urine Leukocyte Esterase Negative /uL (Negative) Urine RBC <1 /hpf (0 - 3) Urine Microscopic WBC < 1 /HPF (0-3) Urine Squamous Epithelial Cells None seen /hpf (<5) Urine Bacteria None seen /hpf (None Seen) Urine Glucose Normal mg/dL (Normal) Labs and/or images reviewed: Labs reviewed by me, Image(s) reviewed by me Assessment/Plan Assessment/Plan Acute generalized weakness Recurrent falls: CT head negative carotid ultrasound negative all labs normal Hypertensive Crisis Unstable gait Acute diabetes Three days History of breast cancer status post mastectomy Moderate malnutrition Time spent 70 minutes Advanced care planning time 20 mts Patient is full code Niya [phone] at bedside MRI brain ordered Plan discussed with: Patient Date of Service: Aug 20, 2025 Billing Provider: TOVA GA MD Common Visit Codes: [id number] INP/OBS CARE(HIGH) TOVA GA MD Aug 20, 2025 12:51
--- NOTE | 2025-08-20 13:18 | DVH ---
Small right-sided synovial cysts are seen at T10-11 and T12-L1. EXAM: MRI THORACIC SPINE WITHOUT CLINICAL HISTORY: PARAPEGIA COMPARISON: None TECHNIQUE: MRI imaging of the thoracic spine was performed on a MR imaging system without intravenous contrast. FINDINGS: Adequate Study Quality Alignment: Normal. Vertebrae: Normal. Vertebral Marrow: Normal. Epidural Space: Normal. Spinal Cord: Normal. Discs: Normal. Ligaments: Normal. Other Small synovial cysts are seen at T10-11 and T12-L1. IMPRESSION: 1. No acute disease
--- NOTE | 2025-08-20 14:01 | DVH ---
EXAMINATION: MRI BRAIN HEAD WO CONTRAST INDICATION: Recurrent falls COMPARISON: CT HEAD WITHOUT CONTRAST on DOS: 08/19/25 TECHNIQUE: Multiplanar, multisequence magnetic resonance imaging of the brain was performed without the use of i ntravenous contrast. FINDINGS: No evidence of acute or remote infarct. No intracranial hemorrhage. No mass effect. There is periventricular/deep white matter T2/FLAIR hyperintensity is nonspecific, but most commonly associated with chronic microvascular disease. The ventricles and sulci are normal in size for age. Clear basal cisterns. Flow voids in the major intracranial vessels are maintained. No abnormality of the orbits. Paranasal sinuses and mastoid air cells are clear. No abnormality of the visualized osseous structures and extracranial soft tissues. IMPRESSION: 1. No acute infarct, intracranial hemorrhage, mass effect, or hydrocephalus.
--- NOTE | 2025-08-20 14:35 | DVH ---
PROCEDURE: MRI LUMBAR SPINE WO CONTRAST INDICATION: PARAPLEGIA Exam Date: 08/20/2025 12:51 PM COMPARISON: None TECHNIQUE: MRI lumbar spine without intravenous contrast. FINDINGS: Multilevel disc degeneration. Alignment: No spondylolisthesis identified. Vertebrae: Moderate compression deformity of the L2 vertebral body with 27% height loss. Conus: Conus medullaris terminates at the T12-L1 level. T12-L1: The disc configuration is normal. Mild left subarticular zone stenosis. Mild right and modera te left foraminal stenosis. Facet arthrosis. L1-2: Disc desiccation and 2.65 mm disc bulge. Mild bilateral subarticular zone stenosis. Severe bila teral foraminal stenosis with potential bilateral exiting L1 nerve root compression. Facet arthrosis. L2-3: Disc desiccation. Disc bulge with superimposed right foraminal disc extrusion measured 6.25 mm in radial dimension. Mild spinal canal stenosis. Mild right and moderate left subarticular zone steno sis. Mild right and severe left foraminal stenosis with potential left exiting L2 nerve root compress ion. Facet arthrosis. L3-4: Disc desiccation and 6.65 mm disc bulge. Severe spinal canal stenosis. Severe bilateral subarti cular zone stenosis with bilateral descending L4 nerve root compression. Severe bilateral foraminal s tenosis with potential bilateral exiting L3 nerve root compression. Facet arthrosis. L4-5: Disc desiccation. Disc bulge with superimposed central disc protrusion measured 6.25 mm in radi al dimension. Severe spinal canal stenosis. Moderate right and severe left subarticular zone stenosis with left descending L5 nerve root compression. Moderate right and mild left foraminal stenosis. Fac et arthrosis. L5-S1: Disc desiccation and disc bulge. Moderate left and severe right subarticular zone stenosis wit h right descending S1 nerve root compression. Mild left and severe right foraminal stenosis with pote ntial right exiting L5 nerve root compression. Facet arthrosis. IMPRESSION: 1. Multilevel disc degeneration. Moderate compression deformity of L2 with 27% height loss. Multileve l spinal canal stenosis, most pronounced and severe at L4-L5. Multilevel subarticular zone stenosis, most pronounced and severe at L4-L5 with left descending L5 nerve root compression. Multilevel forami nal stenosis, most pronounced and severe at L5-S1 with potential right exiting L5 nerve root compress ion.
--- NOTE | 2025-08-20 20:35 | DVHINCON2 ---
Date of service: Aug 20, [address] Sanchez Reason for Consultation Recurrent falls History of Present Illness Mr. Ackerman is a 79 years old right-handed gentleman with a history of hypertension, diabetes, dyslipidemia, breast cancer, he was admitted on 08/09/2025 to the [facility] with a chief complaint of general weakness. At the time, he is alert and fully oriented, he provided the followin g history For about one week time, he has progressive imbalance/gait disturbance, and he has had two falls and he could not get up after the falls. He has dizziness/lightheadedness when he is standing or walking, he has general weakness, no headache, no neck pain, no back pain, no muscle pain, no numbness/tingling in the feet He has a reasonably chills, fever, no skin rashes Urinalysis, 08/19/2025: Unremarkable UDS, 08/19/2025: Negative CBC, 08/20/2025: Unremarkable ESR, 08/20/2025: 14 PT/INR/PTT, 08/20/2025: 10.3/0.97/28 CMP, 08/20/2025: Unremarkable TG/HDL/LDL/HDL, 08/20/2025: 186/123/71/33 MRI head, 08/20/2025: No acute infarct, intracranial hemorrhage, mass effect, or hydrocephalus. MRI T-spine, 08/20/2025: No acute disease MR L-spine, 08/20/2025: 1. Multilevel disc degeneration. Moderate compression deformity of L2 with 27% height loss. Multilevel spinal canal stenosis, most pronounced and severe at L4-L5. Multilevel subarticular zone stenosis, most pronounced and severe at L4-L5 with left descending L5 nerve root compression. Multilevel foraminal stenosis, most pronounced and severe at L5-S1 with potential right exiting L5 nerve root compression Past Medical History Hypertension, diabetes, dyslipidemia, breast cancer Past Surgical History Appendectomy, kidney surgery, cataract surgery, breast cancer resection, tonsillectomy\ Family History: Patient reports no known family medical history. Family History Hypertension, diabetes, heart attack, cancer Social History He was a tobacco smoke, he denies a history of drug/alcohol abuse Allergies: Coded Allergies: NO KNOWN ALLERGIES (Unverified , 07/10/17) Home Meds Active Scripts Amlodipine Besylate (Amlodipine Besylate) 10 Mg Tab, 10 MG PO DAILY for 30 Days, #30 TAB Take 1 tab by mouth once daily. STOP YOUR AMLODIPINE 5 MG TABS. Prov:PAT MO 08/05/24 Moxifloxacin Hydrochloride (Moxifloxacin HCl) 0.5 % Hanna, 0.5 % OP ONCE for 7 Days, #2 ML Instill 1 drop 3 times a day until left eye x7 days Prov:PAT MO 08/05/24 Metronidazole (Flagyl) 500 Mg Tab, 500 MG PO Q6HR for 10 Days, #40 TAB Prov:SALBADOR ALLISON MD 10/10/17 Potassium Chloride (Klor-Con M20) 20 Meq Tab, 20 MEQ PO DAILY, #30 TAB Prov:SALBADOR ALLISON MD 10/09/17 Albuterol Sulfate (VENTOLIN MDI) 90 Mcg Ih, 90 MCG IN Q6HP PRN for 30 Days Prov:SALBADOR ALLISON MD 10/08/17 Yeast (S. Boulardii)(S. Cerevi (Florastor) 250 Mg Cap, 250 MG PO DAILY, #10 CAP Prov:SALBADOR ALLISON MD 10/08/17 Levofloxacin (Levaquin) 500 Mg Tab, 500 MG PO DAILY, #7 TAB Prov:SALBADOR ALLISON MD 10/08/17 Reported Medications Aspirin (Aspirin 81 Low Dose) 81 Mg Chw, 81 MG PO DAILY, CHW 07/11/17 Amlodipine Besylate (Amlodipine Besylate) 5 Mg Tab, 5 MG PO DAILY for 30 Days, MG iNCREASE TO 10MG DAILY 07/11/17 Finasteride (Finasteride) 5 Mg Tab, 5 MG PO DAILY for 30 Days, MG 07/11/17 Losartan Potassium (Losartan Potassium) 100 Mg Tab, 100 MG PO DAILY for 30 Days, MG 07/11/17 Hydrochlorothiazide (Hydrochlorothiazide) 50 Mg Tab, 50 MG PO DAILY for 30 Days, MG 07/11/17 Current Medications Current Medications Medications (Trade) Dose Ordered Sig/Valeriano Route PRN Reason Start Time Stop Time Status Last Admin Diagnostic Test (Pha) (Accu-Chek Comfort Curve T) 1 strip Q6HR 08/20/25 06:00 08/20/25 16:36 Insulin Human Regular (InsuLIN R) Q6HR SC 08/20/25 06:00 08/20/25 16:37 Dextrose 50 ml UD PRN IV Blood Sugar LESS THAN 60 08/20/25 04:00 Albuterol (Ventolin Medneb) 2.5 mg Q4HPRN PRN NEB SHORTNESS OF BREATH 08/20/25 04:00 Ipratropium [place] (Atrovent Medneb) 0.5 mg Q4HPRN PRN NEB SHORTNESS OF BREATH 08/20/25 04:00 Aspirin 81 mg DAILY PO 08/20/25 10:00 08/20/25 10:08 Losartan Potassium (Cozaar Tablet) 100 mg DAILY PO 08/20/25 10:00 08/20/25 10:07 Metoprolol Tartrate (Lopressor Tablet) 25 mg BID PO 08/20/25 10:00 08/20/25 10:09 Labetalol HCl (Labetalol HCl) 5 mg Q2HPRN PRN IV SBP>170 08/20/25 05:00 Review of Systems As above, the other systems are negative Vital Signs Vital Signs Date Time Temp Pulse Resp B/P (MAP) Pulse Ox O2 Delivery O2 Flow Rate FiO2 08/20/25 17:00 97.9 89 17 135/76 (95) 95 97.9 08/20/25 09:04 21 08/20/25 08:00 Room Air* 0 Physical Exam GENERAL EXAM: General: the patient is well developed and nourished. No acute distress. HEENT: Normocephalic, neck is supple, no carotid bruits. No mass. RESPIRATORY: Normal respiratory effort with symmetrical lung expansion. Lungs clear to auscultation. CARDIOVASCULAR: Regular rate and rhythm with no murmurs. S1, S2. ABDOMEN: Soft, nontender, normal bowel sound MUSCULOSKELETAL EXAM: No tenderness to palpation in the muscles NEUROLOGICAL: MENTAL STATUS: Awake and alert. Oriented to person, place, time and general circumstances. Able to give personal history. SPEECH, LANGUAGE, HIGHER CORTICAL FUNCTION: no aphasia or dysathria. CRANIAL NERVES: #2: Intact visual leon to confrontation. The optic discs were sharp #3,4,6: Pupils are equal, round and reactive. EOMs full and conjugate. No nystagmus. #5: Facial sensation intact in all three divisions bilaterally. Mandibular strength intact. #7: Facial muscles symmetrical and strength intact. #8: Hearing grossly normal to voice. #9,10: Uvula and soft palate rise in the midline. Swallow and voice are normal. #11: Trapezius and sternomastoid strength intact bilaterally. #12: Tongue midline. No fasciculations or atrophy. SENSATION: Sensation to touch and pinprick is normal. MOTOR: Normal tone in the upper and lower extremity. Normal muscle bulk. No fasciculations. No abnormal movements or posturing. Muscle strength of the major groups in the upper extremities is 5/5 with the shoulder slightly weak. Muscle strength of the major groups in the lower extremities is 5/5 with the shoulder slightly weaker. REFLEXES: Deep tendon reflexes normal and symmetrical. No pathological reflexes. CEREBELLAR/COORDINATION: Finger to nose and heel to baron are normal bilaterally. GAIT/STATION: deferred. Labs/Diagnostic Data Labs Test 08/20/25 16:50 08/20/25 16:35 08/20/25 05:40 08/20/25 04:40 Range/Units POC Glucose 167 H 70-106 mg/dl SARS-CoV-2 Antigen (Rapid) Negative NEGATIVE Test 08/20/25 03:42 08/19/25 20:00 08/19/25 00:00 Range/Units White Blood Count 7.0 4.4-10.8 10^3/uL Red Blood Count 4.66 4.5-5.90 10^6/uL Hemoglobin 14.0 13.5-17.5 g/dL Hematocrit 41.5 41.0-53.0 % Mean Corpuscular Volume 89.1 80.0-100.0 fL Mean Corpuscular Hemoglobin 30.0 28.0-32.0 pg Mean Corpuscular Hemoglobin Concent 33.7 32.0-36.0 g/dL Red Cell Distribution Width 13.7 11.8-14.3 % Platelet Count 134 L 140-450 10^3/uL Mean Platelet Volume 8.1 6.9-10.8 fL Neutrophils (%) (Auto) 55.7 37.0-80.0 % Lymphocytes (%) (Auto) 30.3 10.0-50.0 % Monocytes (%) (Auto) 8.9 0.0-12.0 % Eosinophils (%) (Auto) 4.6 0.0-7.0 % Basophils (%) (Auto) 0.5 0.0-2.0 % Neutrophils # (Auto) 3.9 1.6-8.6 10 ^3/uL Lymphocytes # (Auto) 2.1 0.4-5.4 10 ^3/uL Monocytes # (Auto) 0.6 0-1.3 10 ^3/uL Eosinophils # (Auto) 0.3 0-0.8 10 ^3/uL Basophils # (Auto) 0 0-0.2 10 ^3/uL Nucleated Red Blood Cells 0.0 % Erythrocyte Sedimentation Rate 14 0-20 mm/hr Prothrombin Time 10.3 9.3-11.8 sec Prothrombin Time INR 0.97 0.9-1.15 Activated Partial Thromboplast Time 28.0 24.5-34.5 SEC Sodium Level 141 136-145 mmol/L Potassium Level 4.3 3.5-5.1 mmol/L Chloride Level 103 98-107 mmol/L Carbon Dioxide Level 26 20-31 mmol/L Anion Gap 12 5-15 Blood Urea Nitrogen 15 9-23 mg/dL Creatinine 1.16 0.700-1.30 mg/dL Glomerular Filtration Rate Calc 64 >90 mL/min BUN/Creatinine Ratio 12.9 10.0-20.0 Serum Glucose 116 H 74-106 mg/dL Hemoglobin A1c 7.2 H <5.7 % A1C Calcium Level 9.4 8.7-10.4 mg/dL Total Bilirubin 0.4 0.2-1.0 mg/dL Aspartate Amino Transferase (AST) 45 H 13-40 U/L Alanine Aminotransferase (ALT) 37 7-40 U/L Alkaline Phosphatase 80 46-116 U/L Troponin I High Sensitivity 11 </=54 ng/L B-Type Natriuretic Peptide 75.61 0-100 pg/mL Total Protein 7.2 5.7-8.2 g/dL Albumin 4.2 3.2-4.8 g/dL Triglycerides Level 186 H < 150 mg/dL Cholesterol Level 123 < 200 mg/dL LDL Cholesterol 71 < 100 mg/dL HDL Cholesterol 33 L 40-59 mg/dL Thyroid Stimulating Hormone (TSH) 1.50 0.55-4.78 uIU/mL Urine Opiates Screen Neg NEGATIVE Urine Fentanyl Screen Neg NEGATIVE Urine Barbiturates Screen Neg NEGATIVE Urine Phencyclidine Screen Neg NEGATIVE Urine Amphetamines Screen Neg NEGATIVE Urine Benzodiazepines Screen Neg NEGATIVE Urine Cocaine Screen Neg NEGATIVE Urine Cannabinoids Screen Neg NEGATIVE Urine Color Colorless Yellow Urine Clarity Clear Clear Urine pH 5.5 5.0-9.0 Urine Specific [place] 1.004 1.001-1.035 Urine Protein Negative Negative Urine Ketones Negative Negative Urine Blood Negative Negative /uL Urine Nitrite Negative Negative Urine Bilirubin Negative Negative Urine Urobilinogen Normal Negative mg/dL Urine Leukocyte Esterase Negative Negative /uL Urine RBC <1 0 - 3 /hpf Urine Microscopic WBC < 1 0-3 /HPF Urine Squamous Epithelial Cells None seen <5 /hpf Urine Bacteria None seen None Seen /hpf Urine Glucose Normal Normal mg/dL Assessment General weakness, gait disturbance, unremarkable MRI head, T-spine and lumbar spine ? Myopathy ? Polyneuropathy, not supported by the history and physical examination Plan/Recommendation Monitoring Supportive treatment Telemetry CRP CPK Each Altered less RATNA Up to chair Physical therapy More recommendation per clinical course Prognosis: Poor This medical document was created using an electronic medical record system with Ku dictation system. Although this document has been carefully reviewed, there may still be some phonetic and typographical errors. These areas are purely typographical due to imperfections of the software programs, and do not reflect any compromise in the patient's medical care. Plan discussed with: Patient, Other JASS FALL MD Aug 20, 2025 20:35
[2025-08-21] VITALS (10 sets, daily range): BP systolic 143–189; BP diastolic 81–97; PULSE 88–113; RESP 18–22; TEMP 97.3–98.1; O2SAT 91–94
[2025-08-21] MEDS: LABETALOL HCL 20 MG/4 ML VL IV PRN (05:32)
--- NOTE | 2025-08-21 12:50 | DVHPN2 ---
Reviewed: Care Plan, H&P, Labs, Medications, Previous Orders, Radiology Changes from previous H/P or p: No Changes Objective Vitals Vital Signs Date Time Temp Pulse Resp B/P (MAP) Pulse Ox O2 Delivery O2 Flow Rate FiO2 08/21/25 12:22 97.8 113 18 147/83 (104) 94 97.8 08/21/25 08:00 Room Air* 0 21 Intake/Output Intake and Output 08/21/25 07:00 Intake Total 1425 ml Balance 1425 ml Intake Oral 1425 ml # Voids 6 Medications Current Medications Medications Dose Ordered Sig/Valeraino Route Start Time Stop Time Status Last Admin Dose Admin Diagnostic Test (Pha) 1 strip Q6HR 08/20/25 06:00 08/21/25 12:19 1 STRIP Insulin Human Regular Q6HR SC 08/20/25 06:00 08/21/25 12:19 2 UNITS Dextrose 50 ml UD PRN IV 08/20/25 04:00 Albuterol 2.5 mg Q4HPRN PRN NEB 08/20/25 04:00 Ipratropium [place] 0.5 mg Q4HPRN PRN NEB 08/20/25 04:00 Aspirin 81 mg DAILY PO 08/20/25 10:00 08/21/25 09:42 81 MG Losartan Potassium 100 mg DAILY PO 08/20/25 10:00 08/21/25 09:46 100 MG Metoprolol Tartrate 25 mg BID PO 08/20/25 10:00 08/21/25 09:44 25 MG Labetalol HCl 5 mg Q2HPRN PRN IV 08/20/25 05:00 08/21/25 05:32 5 MG Laboratory Results Laboratory Tests 08/20/25 03:42 Urinalysis Test 08/19/25 00:00 Urine Color Colorless (Yellow) Urine Clarity Clear (Clear) Urine pH 5.5 (5.0-9.0) Urine Specific [place] 1.004 (1.001-1.035) Urine Protein Negative (Negative) Urine Ketones Negative (Negative) Urine Blood Negative /uL (Negative) Urine Nitrite Negative (Negative) Urine Bilirubin Negative (Negative) Urine Urobilinogen Normal mg/dL (Negative) Urine Leukocyte Esterase Negative /uL (Negative) Urine RBC <1 /hpf (0 - 3) Urine Microscopic WBC < 1 /HPF (0-3) Urine Squamous Epithelial Cells None seen /hpf (<5) Urine Bacteria None seen /hpf (None Seen) Urine Glucose Normal mg/dL (Normal) Labs and/or images reviewed: Labs reviewed by me, Image(s) reviewed by me Assessment/Plan Assessment/Plan Acute generalized weakness Recurrent falls: CT head negative carotid ultrasound negative MRI brain negative all labs normal Hypertensive Crisis Unstable gait Acute diabetes History of male breast cancer status post mastectomy Moderate malnutrition Time spent 50 minutes Advanced care planning time 20 mts Patient is full code Niya [phone] at bedside Physical therapy ordered Plan discussed with: Patient, Spouse My Orders Orders - TOVA GA MD Procedure Category Date Status Time Brain Head Wo Contrast MRI 08/20/25 Resulted 12:38 * Neurology Consult CONS 08/20/25 Transmitted 12:52 Vitamin B12 LAB 08/20/25 In Process 12:54 Folate (Folic Acid) LAB 08/20/25 In Process 12:54 Date of Service: Aug 21, 2025 Billing Provider: TOVA GA MD Common Visit Codes: [id number] INP/OBS CARE(HIGH) TOVA GA MD Aug 21, 2025 12:50
--- NOTE | 2025-08-21 15:53 | DVHSR ---
APPROVED REPORT EXAM: Two-dimensional and M-mode echocardiogram with Doppler and color Doppler. Blood Pressure: 164/98 mmHg INDICATION Presyncope RISK FACTORS Height: 5'7", Weight: 190 DIMENSIONS LVDd4.9 (3.8-5.7cm)LA (2D)3.9 (1.9-4.0cm)Aortic Root3.7 (2.0-3.7cm) LVDs3.5 (2.5-4.0cm)LA (MM) (1.9-4.0cm)Aortic Cusp Exc1.5 (1.5-2.0cm) EF (%) 53.0 (55-70%)Rt. Atrium4.1 (1.9-4.0cm)Asc. Aorta cm IVSd1.2 (0.7-1.1cm)RV (D) (1.8-2.4cm) PWd1.3 (0.7-1.1cm) Mitral Valve MitralMitral Stenosis E wave0.54m/sMV Mean GR.mmHg A wave0.81m/sMV Peak GR.mmHg E/A ratio0.72D MVAcm2 DECEL [id number] 1/2 Tim[place] Aortic Valve Aortic ValveAortic Stenosis V10.74m/Walter Mean GR.4mmHg V21.33m/Walter Peak GR.7mmHg LVOT Diameter1.8 (1.8-2.4cm)Doppler AVA1.42cm2 Other Information Quality : Technically LimitedRhythm : Technically limited study due to body habitus, patient lying flat. Conclusion MODERATE DEGREE LVH AND MODERATE DEGREE LV DIASTOLIC DYSFUNCTION LV EF IS 65% AORTIC SCLEROSIS NORMAL MV,TV AND PV NO EFFUSION
[2025-08-22] VITALS (9 sets, daily range): BP systolic 159–195; BP diastolic 88–121; PULSE 78–98; RESP 18–20; TEMP 96–98.1; O2SAT 91–94
--- NOTE | 2025-08-22 12:32 | DVHPN2 ---
Reviewed: Care Plan, H&P, Labs, Medications, Previous Orders, Radiology Changes from previous H/P or p: No Changes Objective Vitals Vital Signs Date Time Temp Pulse Resp B/P (MAP) Pulse Ox O2 Delivery O2 Flow Rate FiO2 08/22/25 12:12 79 179/97 08/22/25 09:00 98.0 18 94 98.0 08/22/25 08:26 Room Air* 0 21 Intake/Output Intake and Output 08/22/25 07:00 Intake Total 950 ml Balance 950 ml Intake Oral 950 ml # Voids 5 Medications Current Medications Medications Dose Ordered Sig/Valeriano Route Start Time Stop Time Status Last Admin Dose Admin Diagnostic Test (Pha) 1 strip Q6HR 08/20/25 06:00 08/22/25 11:24 1 STRIP Insulin Human Regular Q6HR SC 08/20/25 06:00 08/22/25 12:17 3 UNITS Dextrose 50 ml UD PRN IV 08/20/25 04:00 Albuterol 2.5 mg Q4HPRN PRN NEB 08/20/25 04:00 Ipratropium [place] 0.5 mg Q4HPRN PRN NEB 08/20/25 04:00 Aspirin 81 mg DAILY PO 08/20/25 10:00 08/22/25 09:27 81 MG Losartan Potassium 100 mg DAILY PO 08/20/25 10:00 08/22/25 09:30 100 MG Metoprolol Tartrate 25 mg BID PO 08/20/25 10:00 08/22/25 09:36 25 MG Labetalol HCl 5 mg Q2HPRN PRN IV 08/20/25 05:00 08/22/25 12:12 5 MG Laboratory Results Laboratory Tests 08/20/25 03:42 Urinalysis Test 08/19/25 00:00 Urine Color Colorless (Yellow) Urine Clarity Clear (Clear) Urine pH 5.5 (5.0-9.0) Urine Specific [place] 1.004 (1.001-1.035) Urine Protein Negative (Negative) Urine Ketones Negative (Negative) Urine Blood Negative /uL (Negative) Urine Nitrite Negative (Negative) Urine Bilirubin Negative (Negative) Urine Urobilinogen Normal mg/dL (Negative) Urine Leukocyte Esterase Negative /uL (Negative) Urine RBC <1 /hpf (0 - 3) Urine Microscopic WBC < 1 /HPF (0-3) Urine Squamous Epithelial Cells None seen /hpf (<5) Urine Bacteria None seen /hpf (None Seen) Urine Glucose Normal mg/dL (Normal) Labs and/or images reviewed: Labs reviewed by me, Image(s) reviewed by me Assessment/Plan Assessment/Plan Acute generalized weakness Recurrent falls: CT head negative carotid ultrasound negative MRI brain negative all labs normal neurology consult appreciated Hypertensive Crisis Unstable gait Acute diabetes History of male breast cancer status post lt mastectomy Moderate malnutrition Time spent 50 minutes Advanced care planning time 20 mts Patient is full code Niya [phone] at bedside Physical therapy ordered Plan discussed with: Patient Date of Service: Aug 22, 2025 Billing Provider: TOVA GA MD Common Visit Codes: [id number] INP/OBS CARE(HIGH) TOVA GA MD Aug 22, 2025 12:32
--- NOTE | 2025-08-22 22:35 | DVHPN2 ---
Progress Note - Dictate Date Seen: Aug 22, 2025 Medical Necessity Reason Pt with a Central, PICC or Fol: No Subjective Mr. Ackerman is a 79 years old right-handed gentleman with a history of hypertension, diabetes, dyslipidemia, breast cancer, he was admitted on 08/09/2025 to the [facility] with a chief complaint of general weakness. I have seen examined the patient, I talked to his nurse, he is doing fine, no new complaints Urinalysis, 08/19/2025: Unremarkable UDS, 08/19/2025: Negative CBC, 08/20/2025: Unremarkable ESR, 08/20/2025: 14 PT/INR/PTT, 08/20/2025: 10.3/0.97/28 CMP, 08/20/2025: Unremarkable HGB A1c, 08/20/25: 7.2 CPK, 08/20/2025: 135 LDH, 08/20/2025: 195 TG/HDL/LDL/HDL, 08/20/2025: 186/123/71/33 Vitamin B12, 08/20/2025: 408 Folic acid, 08/20/2025: 18.68 CBC, 08/20/2025: 1.5 MRI head, 08/20/2025: No acute infarct, intracranial hemorrhage, mass effect, or hydrocephalus. MRI T-spine, 08/20/2025: No acute disease MR L-spine, 08/20/2025: 1. Multilevel disc degeneration. Moderate compression deformity of L2 with 27% height loss. Multilevel spinal canal stenosis, most pronounced and severe at L4-L5. Multilevel subarticular zone stenosis, most pronounced and severe at L4-L5 with left descending L5 nerve root compression. Multilevel foraminal stenosis, most pronounced and severe at L5-S1 with potential right exiting L5 nerve root compression vital signs Vital Sign Date Time Temp Pulse Resp B/P (MAP) Pulse Ox O2 Delivery O2 Flow Rate FiO2 08/22/25 22:04 83 159/88 08/22/25 21:00 97.6 18 94 97.6 08/22/25 19:40 Room Air* 0 21 Total Intake and Output 08/21/25 08/21/25 08/22/25 15:00 23:00 07:00 Intake Total 500 ml 450 ml Balance 500 ml 450 ml medications Current Medications Medications Dose Ordered Sig/Valeraino Route Start Time Stop Time Status Last Admin Dose Admin Diagnostic Test (Pha) 1 strip Q6HR 08/20/25 06:00 08/22/25 18:08 1 STRIP Insulin Human Regular Q6HR SC 08/20/25 06:00 08/22/25 18:11 2 UNITS Dextrose 50 ml UD PRN IV 08/20/25 04:00 Albuterol 2.5 mg Q4HPRN PRN NEB 08/20/25 04:00 Ipratropium [place] 0.5 mg Q4HPRN PRN NEB 08/20/25 04:00 Aspirin 81 mg DAILY PO 08/20/25 10:00 08/22/25 09:27 81 MG Losartan Potassium 100 mg DAILY PO 08/20/25 10:00 08/22/25 09:30 100 MG Metoprolol Tartrate 25 mg BID PO 08/20/25 10:00 08/22/25 22:04 25 MG Labetalol HCl 5 mg Q2HPRN PRN IV 08/20/25 05:00 08/22/25 16:08 5 MG objective General: the patient is well developed and nourished. No acute distress. MUSCULOSKELETAL EXAM: No tenderness to palpation in the muscles MENTAL STATUS: Awake and alert. Oriented to person, place, time and general circumstances. Able to give personal history. SPEECH, LANGUAGE, HIGHER CORTICAL FUNCTION: no aphasia or dysathria. CRANIAL NERVES: Pupils are equal, round and reactive. EOMs full and conjugate. No nystagmus. Facial sensation intact in all three divisions bilaterally. Mandibular strength intact. Facial muscles symmetrical and strength intact. Tongue midline. No fasciculations or atrophy. SENSATION: Sensation to touch and pinprick is normal. MOTOR: Normal tone in the upper and lower extremity. Normal muscle bulk. No fasciculations. No abnormal movements or posturing. Muscle strength of the major groups in the extremities is 5/5 with the shoulder slightly weaker. REFLEXES: Deep tendon reflexes normal and symmetrical. No pathological reflexes. CEREBELLAR/COORDINATION: Finger to nose and heel to baron are normal bilaterally. GAIT/STATION: deferred. laboratory and microbiology Laboratory Tests 08/20/25 03:42 Test 08/20/25 03:42 Range/Units Serum Glucose 116 H 74-106 mg/dL Problem List General weakness, gait disturbance, unremarkable MRI head, T-spine and lumbar spine ? Myopathy ? Polyneuropathy, not supported by the history and physical examination Assessment/Plan Monitoring Supportive treatment Telemetry Orthostatic vitals CRP Altered less RATNA Up to chair Physical therapy More recommendation per clinical course This medical document was created using an electronic medical record system with [employer] dictation system. Although this document has been carefully reviewed, there may still be some phonetic and typographical errors. These areas are purely typographical due to imperfections of the software programs, and do not reflect any compromise in the patient's medical care. Prognosis poor Plan discussed with: Patient, Other JASS FALL MD Aug 22, 2025 22:35
[2025-08-23] VITALS (8 sets, daily range): BP systolic 133–181; BP diastolic 88–104; PULSE 65–103; RESP 14–18; TEMP 97.5–98.2; O2SAT 91–98
[2025-08-23] MEDS: IPRATROPIUM BROM 0.5 MG/2.5ML INH SOL NEB PRN (07:40)
[2025-08-23] MEDS: ALBUTEROL SULF 2.5 MG/0.5ML(0.5%) NEB SOLN NEB PRN (07:41)
--- NOTE | 2025-08-23 12:07 | DVHPN2 ---
Reviewed: Care Plan, H&P, Labs, Medications, Previous Orders, Radiology Changes from previous H/P or p: No Changes Objective Vitals Vital Signs Date Time Temp Pulse Resp B/P (MAP) Pulse Ox O2 Delivery O2 Flow Rate FiO2 08/23/25 09:41 83 148/82 08/23/25 08:59 16 96 2.0 28 08/23/25 08:36 98.1 98.1 08/23/25 07:40 Nasal Cannula* Intake/Output Intake and Output 08/23/25 07:00 Intake Total 1800 ml Output Total 1500 ml Balance 300 ml Intake Oral 1800 ml Output Urine Total 1500 ml Medications Current Medications Medications Dose Ordered Sig/Valeriano Route Start Time Stop Time Status Last Admin Dose Admin Diagnostic Test (Pha) 1 strip Q6HR 08/20/25 06:00 08/23/25 10:56 1 STRIP Insulin Human Regular Q6HR SC 08/20/25 06:00 08/23/25 10:58 3 UNITS Dextrose 50 ml UD PRN IV 08/20/25 04:00 Albuterol 2.5 mg Q4HPRN PRN NEB 08/20/25 04:00 08/23/25 07:41 2.5 MG Ipratropium [place] 0.5 mg Q4HPRN PRN NEB 08/20/25 04:00 08/23/25 07:40 0.5 MG Aspirin 81 mg DAILY PO 08/20/25 10:00 08/23/25 08:37 81 MG Losartan Potassium 100 mg DAILY PO 08/20/25 10:00 08/23/25 08:38 100 MG Metoprolol Tartrate 25 mg BID PO 08/20/25 10:00 08/23/25 08:38 25 MG Labetalol HCl 5 mg Q2HPRN PRN IV 08/20/25 05:00 08/23/25 08:38 5 MG Laboratory Results Laboratory Tests 08/20/25 03:42 Urinalysis Test 08/19/25 00:00 Urine Color Colorless (Yellow) Urine Clarity Clear (Clear) Urine pH 5.5 (5.0-9.0) Urine Specific [place] 1.004 (1.001-1.035) Urine Protein Negative (Negative) Urine Ketones Negative (Negative) Urine Blood Negative /uL (Negative) Urine Nitrite Negative (Negative) Urine Bilirubin Negative (Negative) Urine Urobilinogen Normal mg/dL (Negative) Urine Leukocyte Esterase Negative /uL (Negative) Urine RBC <1 /hpf (0 - 3) Urine Microscopic WBC < 1 /HPF (0-3) Urine Squamous Epithelial Cells None seen /hpf (<5) Urine Bacteria None seen /hpf (None Seen) Urine Glucose Normal mg/dL (Normal) Labs and/or images reviewed: Labs reviewed by me, Image(s) reviewed by me Assessment/Plan Assessment/Plan Acute generalized weakness Recurrent falls: CT head negative carotid ultrasound negative MRI brain negative all labs normal neurology consult appreciated Hypertensive Crisis Unstable gait Type 2 diabetes: Insulin sliding scale History of male breast cancer status post lt mastectomy Moderate malnutrition Time spent 50 minutes Advanced care planning time 20 mts Patient is full code Niya [phone] at bedside Physical therapy ordered Patient Niya refused [facility] facility placement and wants to be discharged home on home health TAYA Ramires at bedside Plan discussed with: Patient My Orders Orders - TOVA GA MD Procedure Category Date Status Time Pt Request For Service PT 08/22/25 Logged 12:24 Date of Service: Aug 23, 2025 Billing Provider: TOVA GA MD Common Visit Codes: [id number] INP/OBS CARE(HIGH) TOVA GA MD Aug 23, 2025 12:07
--- NOTE | 2025-08-23 12:21 | DVHDS2 ---
Discharge Summary Date of Admission Aug 19, 2025 at 22:51 Date of Discharge: Aug 23, 2025 Admitting Diagnosis Recurrent falls Wounds: None Labs/Diagnostic Data: Laboratory Results Test 08/23/25 10:44 08/23/25 00:43 08/21/25 05:46 08/20/25 16:50 POC Glucose 182 mg/dl (70-106) C-Reactive Protein High Sensitivity 0.88 mg/dL (<1.0) Vitamin B12 Level 408 pg/mL (211-911) Folic Acid 18.68 ng/mL (>5.38) Test 08/20/25 05:40 08/20/25 04:40 08/20/25 03:42 08/19/25 20:00 SARS-CoV-2 Antigen (Rapid) Negative (NEGATIVE) White Blood Count 7.0 10^3/uL (4.4-10.8) Red Blood Count 4.66 10^6/uL (4.5-5.90) Hemoglobin 14.0 g/dL (13.5-17.5) Hematocrit 41.5 % (41.0-53.0) Mean Corpuscular Volume 89.1 fL (80.0-100.0) Mean Corpuscular Hemoglobin 30.0 pg (28.0-32.0) Mean Corpuscular Hemoglobin Concent 33.7 g/dL (32.0-36.0) Red Cell Distribution Width 13.7 % (11.8-14.3) Platelet Count 134 10^3/uL (140-450) Mean Platelet Volume 8.1 fL (6.9-10.8) Neutrophils (%) (Auto) 55.7 % (37.0-80.0) Lymphocytes (%) (Auto) 30.3 % (10.0-50.0) Monocytes (%) (Auto) 8.9 % (0.0-12.0) Eosinophils (%) (Auto) 4.6 % (0.0-7.0) Basophils (%) (Auto) 0.5 % (0.0-2.0) Neutrophils # (Auto) 3.9 10 ^3/uL (1.6-8.6) Lymphocytes # (Auto) 2.1 10 ^3/uL (0.4-5.4) Monocytes # (Auto) 0.6 10 ^3/uL (0-1.3) Eosinophils # (Auto) 0.3 10 ^3/uL (0-0.8) Basophils # (Auto) 0 10 ^3/uL (0-0.2) Nucleated Red Blood Cells 0.0 % Erythrocyte Sedimentation Rate 14 mm/hr (0-20) Prothrombin Time 10.3 sec (9.3-11.8) Prothrombin Time INR 0.97 (0.9-1.15) Activated Partial Thromboplast Time 28.0 SEC (24.5-34.5) Sodium Level 141 mmol/L (136-145) Potassium Level 4.3 mmol/L (3.5-5.1) Chloride Level 103 mmol/L (98-107) Carbon Dioxide Level 26 mmol/L (20-31) Anion Gap 12 (5-15) Blood Urea Nitrogen 15 mg/dL (9-23) Creatinine 1.16 mg/dL (0.700-1.30) Glomerular Filtration Rate Calc 64 mL/min (>90) BUN/Creatinine Ratio 12.9 (10.0-20.0) Serum Glucose 116 mg/dL (74-106) Hemoglobin A1c 7.2 % A1C (<5.7) Calcium Level 9.4 mg/dL (8.7-10.4) Total Bilirubin 0.4 mg/dL (0.2-1.0) Aspartate Amino Transferase (AST) 45 U/L (13-40) Alanine Aminotransferase (ALT) 37 U/L (7-40) Alkaline Phosphatase 80 U/L (46-116) Lactate Dehydrogenase 195 U/L (120-246) Creatine Kinase 135 U/L (46-171) Troponin I High Sensitivity 11 ng/L (</=54) B-Type Natriuretic Peptide 75.61 pg/mL (0-100) Total Protein 7.2 g/dL (5.7-8.2) Albumin 4.2 g/dL (3.2-4.8) Triglycerides Level 186 mg/dL (< 150) Cholesterol Level 123 mg/dL (< 200) LDL Cholesterol 71 mg/dL (< 100) HDL Cholesterol 33 mg/dL (40-59) Thyroid Stimulating Hormone (TSH) 1.50 uIU/mL (0.55-4.78) Urine Opiates Screen Neg (NEGATIVE) Urine Fentanyl Screen Neg (NEGATIVE) Urine Barbiturates Screen Neg (NEGATIVE) Urine Phencyclidine Screen Neg (NEGATIVE) Urine Amphetamines Screen Neg (NEGATIVE) Urine Benzodiazepines Screen Neg (NEGATIVE) Urine Cocaine Screen Neg (NEGATIVE) Urine Cannabinoids Screen Neg (NEGATIVE) Test 08/19/25 00:00 Urine Color Colorless (Yellow) Urine Clarity Clear (Clear) Urine pH 5.5 (5.0-9.0) Urine Specific [place] 1.004 (1.001-1.035) Urine Protein Negative (Negative) Urine Ketones Negative (Negative) Urine Blood Negative /uL (Negative) Urine Nitrite Negative (Negative) Urine Bilirubin Negative (Negative) Urine Urobilinogen Normal mg/dL (Negative) Urine Leukocyte Esterase Negative /uL (Negative) Urine RBC <1 /hpf (0 - 3) Urine Microscopic WBC < 1 /HPF (0-3) Urine Squamous Epithelial Cells None seen /hpf (<5) Urine Bacteria None seen /hpf (None Seen) Urine Glucose Normal mg/dL (Normal) Other Laboratory Tests 08/20/25 03:42 Brief Hx & Hospital Course: 79-year-old male with a history of hypertension type 2 diabetes history of male breast cancer status post left mastectomy burden by family for generalized weakness and recurrent falls. Found to have I being high blood pressure in the range of systolic 190. Treated with the medications and came back to normal. patient has three of for blood pressure medications at home doubt compliance. CT head negative carotid ultrasound negative MRI brain negative all labs normal neurology consult by Dr. Kimbrough physical therapy recommended [facility] facility placement but the does not want and requesting to be discharged home on home health. Discharged home on home health he will continue all his home medications. No new medications. Consults/Reason for consult Neurology Dr. Kimbrough Operations or Procedures CT head Condition at Discharge: Fair Final Diagnosis/Problems List Acute generalized weakness Recurrent falls: CT head negative carotid ultrasound negative MRI brain negative all labs normal neurology consult appreciated Hypertensive Crisis Unstable gait Type 2 diabetes: Insulin sliding scale History of male breast cancer status post lt mastectomy Moderate malnutrition Discharge Disposition: Home with Health Services Discharge Instruct/Medications Diet: Cardiac 2g Na,low cholest Activity: Light activity Follow Up/Referral: Resume all previous home medications Follow up with the primary Dr Medications: Sent to the pharmacy Scheduled Amlodipine Besylate (Amlodipine Besylate), 5 MG PO DAILY, (Reported) Amlodipine Besylate (Amlodipine Besylate), 10 MG PO DAILY Aspirin (Aspirin 81 Low Dose), 81 MG PO DAILY, (Reported) Finasteride (Finasteride), 5 MG PO DAILY, (Reported) Hydrochlorothiazide (Hydrochlorothiazide), 50 MG PO DAILY, (Reported) Levofloxacin (Levaquin), 500 MG PO DAILY Losartan Potassium (Losartan Potassium), 100 MG PO DAILY, (Reported) Metronidazole (Flagyl), 500 MG PO Q6HR Moxifloxacin Hydrochloride (Moxifloxacin HCl), 0.5 % OP ONCE Potassium Chloride (Klor-Con M20), 20 MEQ PO DAILY Yeast (S. Boulardii)(S. Cerevi (Florastor), 250 MG PO DAILY Scheduled PRN Albuterol Sulfate (Ventolin Mdi), 90 MCG IN Q6HP PRN 39 (Time taken for discharge summary 39 minutes) Discharge Statement: "Patient was advised to return to the ER or call 911 if any headaches, dizziness, shortness of breath, chest pain, abdominal pain, bleeding, fevers, or worsening of medical condition. Patient was counseled about treatment plan, medications, possible side effects, patientverbalized understanding. All questions were answered to the best of my ability. This discharge took greater then 30 minutes in planning, reviewing documentation, counseling the patient, and discussing with other team members." ASSESSMENT ASSESSMENT Hospital Course Uneventful Assessment Acute generalized weakness Recurrent falls: CT head negative carotid ultrasound negative MRI brain negative all labs normal neurology consult appreciated Hypertensive Crisis Unstable gait Type 2 diabetes: Insulin sliding scale History of male breast cancer status post lt mastectomy Moderate malnutrition Date of Service: Aug 23, 2025 Billing Provider: TOVA GA MD Common Visit Codes: [id number] DISCH DAY >30min TOVA GA MD Aug 23, 2025 12:21
[2025-08-24 08:07] LABS: Anti-Nuclear Antibody Direct Negative (Negative)
== END 2025-08-23 16:25 | disposition home health service (06) | DRG 305 ==
LOC: ER 11:01 → OVERFLOW 22:51 → TELE-WESTW 08-20 05:36
PROVIDERS: ADMIT Family Medicine; ATTEND Family Medicine
DX: I16.9 Hypertensive crisis, unspecified (principal); E44.0 Moderate protein-calorie malnutrition; E78.5 Hyperlipidemia, unspecified; E11.9 Type 2 diabetes mellitus without complications; I10 Essential (primary) hypertension; R26.81 Unsteadiness on feet; Z20.822 Contact with and (suspected) exposure to COVID-19; Z79.82 Long term (current) use of aspirin; Z79.899 Other long term (current) drug therapy; Z82.49 Family history of ischemic heart disease and other diseases of the circulatory system; Z83.3 Family history of diabetes mellitus; Z85.3 Personal history of malignant neoplasm of breast; Z90.12 Acquired absence of left breast and nipple; Z90.49 Acquired absence of other specified parts of digestive tract; Z68.30 Body mass index [BMI] 30.0-30.9, adult
CPT/HCPCS: 36415; 70450; 70551; 71045; 72146; 72148; 73560; 80048; 80053; 80061; 80307; 81001; 82085; 82088; 82550; 82607; 82746; 82962; 83036; 83615; 83880; 84244; 84443; 84484; 85025; 85610; 85652; 85730; 86038; 86141; 87426; 93306; 93886; 93975; 94640; 96361; 96375; 97163; G0378; J1815